=== PATIENT | male | born 1970 | race African-American/Black ===

== ENCOUNTER 2017-07-28 11:35 | Emergency (ER) | payer MEDICAID ==
[~2017-07-28] VITALS: Ht 175.3 cm; Wt 99.8 kg
[2017-07-28 13:20] LABS: Basophils # (auto) 0.1 uL; Basophils % (auto) 0.6 % (0.0-2.0); Eosinophils # (auto) 0 uL; Eosinophils % (auto) 0.1 % (0.0-7.0); Lymphocytes # (auto) 1.6 uL; Lymphocytes % (auto) 10.4 % (10.0-50.0); Monocytes # (auto) 0.4 uL; White Blood Cell 15.6 10^3/uL (4.4-10.8)
[2017-07-28 13:29] LABS: Hematocrit 46.4 % (41.0-53.0); Hemoglobin 16.3 g/dL (13.5-17.5); Mean Corpuscular Hemoglobin 29.9 pg (28.0-32.0); Mean Corpuscular Volume 85.3 fL (80.0-100.0); Monocytes % (auto) 2.6 % (0.0-12.0); Neutrophils # (auto) 13.4 uL; Neutrophils % (auto) 86.3 % (37.0-80.0); Nucleated Red Blood Cells % 0.3 %; Platelet Count (auto) 220 10^3/uL (140-450); Red Blood Cells 5.44 10^6/uL (4.5-5.90); Red Cell Distribution Width 12.1 % (11.8-14.3)
[2017-07-28] MEDS ORDERED: PROMETHAZINE HCL 25 MG/ML 1ML IV ONE ×2 (13:30→14:30)
[2017-07-28] MEDS ORDERED: NALBUPHINE HCL 10 MG/1ml INJECTION IV ONE (13:30)
[2017-07-28 13:44] LABS: Alanine Aminotransferase 30 U/L (16-61); Albumin 4.3 g/dL (3.4-5.0); Alkaline Phosphatase 127 U/L (45-117); Anion Gap 14 (5-15); Aspartate Aminotransferase 23 U/L (15-37); BUN/Creatinine Ratio 21.1; Bilirubin, Total 0.5 mg/dL (0.2-1.0); Blood Urea Nitrogen 16 mg/dL (7-18); Calcium 10.6 mg/dL (8.5-10.1); Carbon Dioxide 22 mmol/L (21-32); Chloride 100 mmol/L (98-107); GFR African American 141 mL/min; GFR Non-African American 116 mL/min; Glucose 361 mg/dL (74-106); Potassium 4.1 mmol/L (3.5-5.1); Sodium 136 mmol/L (136-145); Total Protein 8.6 g/dL (6.4-8.2)
[2017-07-28] MEDS ORDERED: MORPHINE SULFATE 4 MG/ML SYR/VIAL IV ONE ×2 (14:30→17:00)
[2017-07-28] MEDS ORDERED: SODIUM CHLORIDE 0.9% 1,000 ML IV ONE (16:15)
[2017-07-28 16:52] LABS: Urine Bacteria NONE SEEN /hpf (None Seen); Urine Blood 2+ /uL (Negative); Urine Specific Gravity 1.029 (1.001-1.035); Urine WBC 4 /hpf (0 - 3)
[2017-07-28] MEDS ORDERED: METOCLOPRAMIDE HCL 5MG/ml INJ 2ml VIAL IV ONE (17:00)
[2017-07-28 17:15] LABS: Alcohol, Urine < 3.0 mg/dL (0-5); Amphetamine Screen, Urine NEGATIVE (NEGATIVE); Barbiturate Scree,Urine NEGATIVE (NEGATIVE); Benzodiazephine Screen, Urine NEGATIVE (NEGATIVE); Cannabinoid Screen, Urine NEGATIVE (NEGATIVE); Cocaine Screen, Urine NEGATIVE (NEGATIVE); Opiate Scree,Urine POSITIVE (NEGATIVE); Phencyclidine Screen, Urine NEGATIVE (NEGATIVE)
[2017-07-28 18:09] VITALS: BP 161/92
== END 2017-07-28 18:47 | disposition home or self-care (01) ==
LOC: ER 11:35 → EDBD 11:35 → ER 18:47
DX: R10.11 Right upper quadrant pain (principal); G89.29 Other chronic pain; M54.9 Dorsalgia, unspecified; E11.65 Type 2 diabetes mellitus with hyperglycemia; I10 Essential (primary) hypertension; F17.210 Nicotine dependence, cigarettes, uncomplicated; E66.9 Obesity, unspecified; Z68.32 Body mass index [BMI] 32.0-32.9, adult
CPT/HCPCS: 36415; 71045; 74176; 80053; 80307; 81001; 84484; 85025; 93005; 96361; 96374; 96375; 96376; 99285; J2270; J2300; J2550; J2765; J7030

== ENCOUNTER 2019-06-29 03:51 | Emergency (ER) | payer MEDICAID ==
[~2019-06-29] VITALS: Ht 170.2 cm; Wt 95.3 kg
[~2019-06-29 03:51] MED LIST: LISI-646 PO; METF-370 PO
[2019-06-29] MEDS ORDERED: PROMETHAZINE HCL 25 MG/ML 1ML IV ONE (05:15)
[2019-06-29 05:28] LABS: Urine Bacteria NONE SEEN /hpf (None Seen); Urine Blood 1+ /uL (Negative); Urine Hyaline Cast MANY /lpf (0 - 2); Urine Mucus FEW (None Seen); Urine Specific Gravity 1.028 (1.001-1.035); Urine WBC 2 /hpf (0 - 3)
[2019-06-29 05:38] LABS: Alcohol, Urine < 3.0 mg/dL (0-5); Amphetamine Screen, Urine NEGATIVE (NEGATIVE); Barbiturate Scree,Urine NEGATIVE (NEGATIVE); Benzodiazephine Screen, Urine NEGATIVE (NEGATIVE); Cannabinoid Screen, Urine POSITIVE (NEGATIVE); Cocaine Screen, Urine NEGATIVE (NEGATIVE); Opiate Scree,Urine NEGATIVE (NEGATIVE); Phencyclidine Screen, Urine NEGATIVE (NEGATIVE)
[2019-06-29] MEDS ORDERED: IOHEXOL 300 MG/ML 100ML BOTTLE IJ ONE (06:37)
[2019-06-29] MEDS ORDERED: SODIUM CHLORIDE 0.9% 1,000 ML IV ONE (06:38)
[2019-06-29] MEDS ORDERED: SODIUM CHLORIDE 0.9% 500 ML IVB ONE (06:38)
[2019-06-29] MEDS ORDERED: METOCLOPRAMIDE HCL 5MG/ml INJ 2ml VIAL IV ONE (06:45)
[2019-06-29] MEDS ORDERED: HYDROmorphone HCL 2 MG/ML VL IV ONE (06:45)
[2019-06-29 07:31] LABS: Basophils # (auto) 0 10 ^3/uL (0-0.2); Basophils % (auto) 0.1 % (0.0-2.0); Eosinophils # (auto) 0 10 ^3/uL (0-0.8); Hematocrit 43.8 % (41.0-53.0); Hemoglobin 15.1 g/dL (13.5-17.5); Lymphocytes # (auto) 1.5 10 ^3/uL (0.4-5.4); Lymphocytes % (auto) 9.8 % (10.0-50.0); Mean Corpuscular Hemoglobin 28.4 pg (28.0-32.0); Mean Corpuscular Hgb Conc. 34.5 g/dL (32.0-36.0); Mean Corpuscular Volume 82.3 fL (80.0-100.0); Monocytes # (auto) 0.6 10 ^3/uL (0-1.3); Monocytes % (auto) 3.7 % (0.0-12.0); Neutrophils % (auto) 86.4 % (37.0-80.0); Nucleated Red Blood Cells % 0.2 %; Platelet Count (auto) 196 10^3/uL (140-450); Red Blood Cells 5.32 10^6/uL (4.5-5.90); Red Cell Distribution Width 12.8 % (11.8-14.3)
[2019-06-29 07:44] LABS: INR 1.01 (0.9-1.15); Partial Thromboplastin Time 23.2 sec (23.64-32.05)
[2019-06-29 07:58] LABS: Magnesium 1.6 mg/dL (1.6-2.6); Potassium 3.6 mmol/L (3.5-5.1)
[2019-06-29 08:05] LABS: Albumin 4.2 g/dL (3.4-5.0); Bilirubin, Total 0.4 mg/dL (0.2-1.0); Calcium 9.6 mg/dL (8.5-10.1)
[2019-06-29] MEDS ORDERED: PROCHLORPERAZINE EDISYLATE 5 MG/ML 2ML VIAL IV ONE (10:15)
[2019-06-29] MEDS ORDERED: MORPHINE SULF INJ 2 MG/ML SYRINGE 1ML IV ONE (10:15)
[2019-06-29 10:54] VITALS: BP 153/77
== END 2019-06-29 11:16 | disposition home or self-care (01) ==
LOC: ER 03:51
DX: E11.65 Type 2 diabetes mellitus with hyperglycemia (principal); R10.84 Generalized abdominal pain; K31.84 Gastroparesis; K80.20 Calculus of gallbladder without cholecystitis without obstruction; F17.210 Nicotine dependence, cigarettes, uncomplicated; I10 Essential (primary) hypertension
CPT/HCPCS: 36415; 71046; 74177; 80053; 80307; 81001; 82150; 83690; 83735; 84443; 84484; 85025; 85610; 85730; 93005; 96361; 96374; 96375; 99285; J0780; J1170; J2270; J2550; J2765; J7030; Q9967

== ENCOUNTER → 2019-07-02 | Emergency (ER) | payer MEDICAID ==
[~2019-07-02] VITALS: Ht 180.3 cm; Wt 95.3 kg
[~2019-07-02] MED LIST changes: +ERYTHROMYCIN 250 MG TAB PO ONE; +HYDROmorphone HCL 2 MG/ML VL IV ONE; +KETOROLAC TROMETH 15 mg/ml 1ML VL IV ONE; +KETOROLAC TROMETH 30 MG/ML 1ML VIAL ONE; +METOCLOPRAMIDE HCL 5MG/ml INJ 2ml VIAL IV ONE; +MORPHINE SULF INJ 2 MG/ML SYRINGE 1ML IV ONE; +PROMETHAZINE HCL 25 MG/ML 1ML IV ONE; +SODIUM CHLORIDE 0.9% 1,000 ML IVB ONE
[2019-07-02 08:06] LABS: Basophils # (auto) 0.1 10 ^3/uL (0-0.2); Basophils % (auto) 0.6 % (0.0-2.0); Eosinophils # (auto) 0 10 ^3/uL (0-0.8); Eosinophils % (auto) 0.4 % (0.0-7.0); Hematocrit 42.4 % (41.0-53.0); Hemoglobin 14.8 g/dL (13.5-17.5); Lymphocytes # (auto) 1.6 10 ^3/uL (0.4-5.4); Lymphocytes % (auto) 15.6 % (10.0-50.0); Mean Corpuscular Hemoglobin 28.7 pg (28.0-32.0); Mean Corpuscular Hgb Conc. 34.8 g/dL (32.0-36.0); Mean Corpuscular Volume 82.4 fL (80.0-100.0); Monocytes # (auto) 0.6 10 ^3/uL (0-1.3); Monocytes % (auto) 5.4 % (0.0-12.0); Neutrophils # (auto) 8.2 10 ^3/uL (1.6-8.6); Nucleated Red Blood Cells % 0.1 %; Platelet Count (auto) 185 10^3/uL (140-450); Red Blood Cells 5.15 10^6/uL (4.5-5.90); Red Cell Distribution Width 12.9 % (11.8-14.3); White Blood Cell 10.5 10^3/uL (4.4-10.8)
[2019-07-02 08:22] LABS: Magnesium 2.2 mg/dL (1.6-2.6)
[2019-07-02 08:24] LABS: Calcium 9.2 mg/dL (8.5-10.1); Potassium 3.7 mmol/L (3.5-5.1)
[2019-07-02 08:27] LABS: BUN/Creatinine Ratio 23.6; Bilirubin, Total 0.7 mg/dL (0.2-1.0)
[2019-07-02 09:54] LABS: Urine WBC None Seen /hpf (0 - 3)
[2019-07-02 10:01] LABS: Urine Bacteria NONE SEEN /hpf (None Seen); Urine Blood 1+ /uL (Negative); Urine Hyaline Cast FEW /lpf (0 - 2); Urine Mucus FEW (None Seen); Urine Specific Gravity 1.011 (1.001-1.035)
[2019-07-02 13:45] VITALS: BP 156/92
[2019-07-02 14:06] LABS: Amphetamine Screen, Urine NEGATIVE (NEGATIVE); Barbiturate Scree,Urine NEGATIVE (NEGATIVE); Benzodiazephine Screen, Urine NEGATIVE (NEGATIVE); Cannabinoid Screen, Urine POSITIVE (NEGATIVE); Cocaine Screen, Urine NEGATIVE (NEGATIVE); Opiate Scree,Urine POSITIVE (NEGATIVE); Phencyclidine Screen, Urine NEGATIVE (NEGATIVE)
[2019-07-02] MEDS: PANTOPRAZOLE 40 MG TAB PO ONE ×2 (14:32→14:49)
[2019-07-02] MEDS: PREGABALIN CAPSULE 75 MG CAP PO ONE ×2 (14:32→14:49)
== END | disposition left against medical advice (07) ==
LOC: ER 07:07
DX: K29.00 Acute gastritis without bleeding (principal); E11.43 Type 2 diabetes mellitus with diabetic autonomic (poly)neuropathy; K31.84 Gastroparesis; R11.2 Nausea with vomiting, unspecified; F17.210 Nicotine dependence, cigarettes, uncomplicated; E11.9 Type 2 diabetes mellitus without complications; I10 Essential (primary) hypertension
CPT/HCPCS: 36415; 78226; 80053; 80307; 81001; 83690; 83735; 85025; 96361; 96374; 96375; 99284; A9537; J1170; J1885; J2270; J2550; J2765; J7030

== ENCOUNTER 2019-07-07 09:09 | Emergency (ER) | payer MEDICAID ==
[~2019-07-07] VITALS: Ht 180.3 cm; Wt 97.5 kg
[~2019-07-07 09:09] MED LIST changes: -ERYTHROMYCIN 250 MG TAB PO ONE; -HYDROmorphone HCL 2 MG/ML VL IV ONE; -KETOROLAC TROMETH 15 mg/ml 1ML VL IV ONE; -KETOROLAC TROMETH 30 MG/ML 1ML VIAL ONE; -METOCLOPRAMIDE HCL 5MG/ml INJ 2ml VIAL IV ONE; -MORPHINE SULF INJ 2 MG/ML SYRINGE 1ML IV ONE; -PROMETHAZINE HCL 25 MG/ML 1ML IV ONE; -SODIUM CHLORIDE 0.9% 1,000 ML IVB ONE
[2019-07-07] MEDS ORDERED: SODIUM CHLORIDE 0.9% 1,000 ML IVB ONE (09:32)
[2019-07-07] MEDS ORDERED: SODIUM CHLORIDE 0.9% 1,000 ML IV ONE (09:32)
[2019-07-07] MEDS ORDERED: KETOROLAC TROMETH 30 MG/ML 1ML VIAL ONE (09:41)
[2019-07-07] MEDS ORDERED: METOCLOPRAMIDE HCL 5MG/ml INJ 2ml VIAL IV ONE (09:45)
[2019-07-07] MEDS ORDERED: KETOROLAC TROMETH 15 mg/ml 1ML VL IV ONE (09:45)
[2019-07-07] MEDS ORDERED: MORPHINE SULFATE 4 MG/ML SYR/VIAL IV ONE (09:45)
[2019-07-07 09:46] LABS: Basophils # (auto) 0.1 10 ^3/uL (0-0.2); Eosinophils # (auto) 0 10 ^3/uL (0-0.8); Eosinophils % (auto) 0.1 % (0.0-7.0); Hematocrit 42.9 % (41.0-53.0); Hemoglobin 15.4 g/dL (13.5-17.5); Lymphocytes # (auto) 2.1 10 ^3/uL (0.4-5.4); Lymphocytes % (auto) 22.9 % (10.0-50.0); Mean Corpuscular Hemoglobin 29.3 pg (28.0-32.0); Mean Corpuscular Hgb Conc. 35.8 g/dL (32.0-36.0); Mean Corpuscular Volume 81.7 fL (80.0-100.0); Monocytes # (auto) 0.5 10 ^3/uL (0-1.3); Monocytes % (auto) 5.4 % (0.0-12.0); Neutrophils # (auto) 6.5 10 ^3/uL (1.6-8.6); Neutrophils % (auto) 70.6 % (37.0-80.0); Nucleated Red Blood Cells % 0.2 %; Platelet Count (auto) 232 10^3/uL (140-450); Red Blood Cells 5.25 10^6/uL (4.5-5.90); Red Cell Distribution Width 12.3 % (11.8-14.3); White Blood Cell 9.2 10^3/uL (4.4-10.8)
[2019-07-07 10:08] LABS: Albumin 4.4 g/dL (3.4-5.0); BUN/Creatinine Ratio 17.9; Potassium 3.8 mmol/L (3.5-5.1)
[2019-07-07 10:11] LABS: Bilirubin, Total 0.7 mg/dL (0.2-1.0); Total Protein 8.4 g/dL (6.4-8.2)
[2019-07-07 11:00] VITALS: BP 126/79
== END 2019-07-07 12:01 | disposition home or self-care (01) ==
LOC: ER 09:09
DX: E11.65 Type 2 diabetes mellitus with hyperglycemia (principal); R10.9 Unspecified abdominal pain; I10 Essential (primary) hypertension
CPT/HCPCS: 36415; 80053; 83690; 85025; 96361; 96374; 96375; 99284; J1885; J2270; J2765; J7030

== ENCOUNTER 2019-07-12 15:20 | Inpatient (IN) | payer MEDICAID ==
[~2019-07-12] VITALS: Ht 175.3 cm; Wt 96.6 kg
[2019-07-12] MEDS ORDERED: PROMETHAZINE HCL 25 MG/ML 1ML IV ONE (16:00)
[2019-07-12] MEDS ORDERED: MORPHINE SULF INJ 2 MG/ML SYRINGE 1ML IV ONE (16:00)
[2019-07-12] MEDS ORDERED: ASPirin 81 mg TAB PO ONE (16:00)
[2019-07-12 16:09] LABS: Basophils # (auto) 0 10 ^3/uL (0-0.2); Basophils % (auto) 0.5 % (0.0-2.0); Eosinophils # (auto) 0 10 ^3/uL (0-0.8); Eosinophils % (auto) 0.2 % (0.0-7.0); Hematocrit 40.6 % (41.0-53.0); Lymphocytes # (auto) 1.4 10 ^3/uL (0.4-5.4); Lymphocytes % (auto) 14.9 % (10.0-50.0); Mean Corpuscular Hemoglobin 28.7 pg (28.0-32.0); Mean Corpuscular Hgb Conc. 34.6 g/dL (32.0-36.0); Monocytes # (auto) 0.4 10 ^3/uL (0-1.3); Monocytes % (auto) 4.3 % (0.0-12.0); Neutrophils # (auto) 7.6 10 ^3/uL (1.6-8.6); Neutrophils % (auto) 80.1 % (37.0-80.0); Nucleated Red Blood Cells % 0.1 %; Platelet Count (auto) 199 10^3/uL (140-450); Red Blood Cells 4.89 10^6/uL (4.5-5.90); Red Cell Distribution Width 12.9 % (11.8-14.3); White Blood Cell 9.4 10^3/uL (4.4-10.8)
[2019-07-12 16:24] LABS: INR 0.99 (0.9-1.15); Partial Thromboplastin Time 23.6 sec (23.64-32.05)
[2019-07-12 16:25] LABS: Alanine Aminotransferase 26 U/L (16-61); Albumin 3.8 g/dL (3.4-5.0); Anion Gap 10 (5-15); Aspartate Aminotransferase 17 U/L (15-37); Blood Urea Nitrogen 16 mg/dL (7-18); Calcium 9.6 mg/dL (8.5-10.1); Carbon Dioxide 25 mmol/L (21-32); Chloride 102 mmol/L (98-107); GFR African American 116 mL/min; GFR Non-African American 96 mL/min; Glucose 158 mg/dL (74-106); Magnesium 1.8 mg/dL (1.6-2.6); Potassium 4.1 mmol/L (3.5-5.1); Sodium 137 mmol/L (136-145)
[2019-07-12 16:30] LABS: Alkaline Phosphatase 61 U/L (45-117); Bilirubin, Total 0.5 mg/dL (0.2-1.0); Total Protein 7.6 g/dL (6.4-8.2)
[2019-07-12] MEDS ORDERED: LABETALOL HCL 5 MG/ML 4ML SYRINGE IV ONE ×2 (18:15→20:30)
[2019-07-12] MEDS ORDERED: PROMETHAZINE HCL 25 MG/ML 1ML IV PRN (18:45)
[2019-07-12] MEDS ORDERED: traMADol HCL 50 MG TAB PO PRN (18:45)
[2019-07-12] MEDS ORDERED: KETOROLAC TROMETH 30 MG/ML 1ML VIAL IV ONE (18:45)
[2019-07-12] MEDS ORDERED: LACTULOSE 20Gm/30ML SOLN PO PRN (18:45)
[2019-07-12] MEDS ORDERED: NITROGLYCERIN 0.4 MG SL TAB SL PRN (18:45)
[2019-07-12] MEDS ORDERED: ACETAMINOPHEN 500 MG TAB PO PRN (18:45)
[2019-07-12] MEDS ORDERED: FAMOTIDINE 20 MG TAB PO ONE (18:45)
[2019-07-12] MEDS: CARVEDILOL 3.125 MG TAB PO SCH ×2 (18:45→22:13)
[2019-07-12] MEDS ORDERED: LISINOPRIL 20 MG TAB PO ONE (18:45)
[2019-07-12] MEDS ORDERED: MORPHINE SULF INJ 2 MG/ML SYRINGE 1ML IV PRN (18:45)
[2019-07-12] MEDS ORDERED: TEMAZEPAM 15 MG CAP PO PRN (18:45)
[2019-07-12] MEDS ORDERED: ALUM & MAG HYDROX-SIMETH LIQ(MAALOX) 30 ML PO ONE (18:45)
[2019-07-12] MEDS ORDERED: amLODIPine BESYLATE 5 MG TAB PO ONE (18:45)
[2019-07-12] MEDS ORDERED: DEXTROSE (50%) 50ML SYRG IV PRN (18:45)
[2019-07-12] MEDS ORDERED: LABETALOL HCL 5 MG/ML 4ML SYRINGE IV PRN (20:30)
[2019-07-12 21:30] VITALS: BP 148/79
[2019-07-12 22:00] VITALS: BP 148/79
[2019-07-12] MEDS: InsuLIN REG 1unit/0.01ml Soln (100units/ml) SC SCH (22:00)
[2019-07-12] MEDS ORDERED: ATORVASTATIN 20 MG TAB PO SCH (22:00)
--- NOTE | 2019-07-12 22:00 | NUR ---
Telemetry admit from ER ARTUROEZIO admitted to Telemetry unit. Patient oriented to finn VANESSA RN, unit, room, bed, and unit policies regarding patient care and visiting hours. Patient now on continuous telemetry monitoring, tele box #49 and telemetry reading on arrival to unit is NSR at 82. Patient weighed by bed scale and encouraged to call if they need something. All questions and concerns addressed, patient verbalized understanding. Note: Skin assessment: Back with lesions different sizes and scattered on back, wound consult placed.
[2019-07-12] MEDS: FAMOTIDINE 20 MG TAB PO SCH (22:14)
[2019-07-12] MEDS: ACCU-CHEK COMFORT CURVE STRIP VI SCH (22:15)
[2019-07-12] MEDS ORDERED: METF-916 PO (22:56)
[2019-07-13 05:00] VITALS: BP 138/80
[2019-07-13] MEDS: ACCU-CHEK COMFORT CURVE STRIP VI SCH ×2 (05:28→12:06)
--- NOTE | 2019-07-13 06:24 | NUR ---
Unable to collect urine specimen, patient ambulated to restroom and did not call prior to getting out of bed despite frequent reminders.
[2019-07-13] MEDS: InsuLIN REG 1unit/0.01ml Soln (100units/ml) SC SCH ×2 (06:52→11:30)
--- NOTE | 2019-07-13 07:30 | NUR ---
Opening Shift Note Assumed care of patient, awake and alert, rocking back and forth while seated on side of bed. No S/S of distress/SOB or pain. Instructed on POC and to call for assist PRN, will continue to monitor for changes Q1hr and PRN. Re-educated on need for urine sample, patient verbalizes understanding. Bed in low and locked position, rails up x2, no-slip socks on.
[2019-07-13 09:00] VITALS: BP 118/73
--- NOTE | 2019-07-13 09:07 | NUR ---
URINE SPECIMEN COLLECTED
[2019-07-13] MEDS: CARVEDILOL 3.125 MG TAB PO SCH (09:21)
[2019-07-13] MEDS: FAMOTIDINE 20 MG TAB PO SCH (09:21)
--- NOTE | 2019-07-13 09:23 | NUR ---
WOUND CARE NURSE AT BEDSIDE
[2019-07-13 09:24] LABS: Urine Bacteria NONE SEEN /hpf (None Seen); Urine Blood Negative /uL (Negative); Urine Hyaline Cast FEW /lpf (0 - 2); Urine Mucus FEW (None Seen); Urine Specific Gravity 1.026 (1.001-1.035); Urine WBC 2 /hpf (0 - 3)
--- NOTE | 2019-07-13 09:40 | NUR ---
WOUND CARE NOTE: Wound care in to see patient per wound care request regarding "scattered wound on back" that are noted present on admission. Bedside nurse took photograph of patient's wounds upon admission for reference. Patient is 49 years old male with admitting diagnosis of Chest Pain, Hypertensive Urgency. Patient with history of DM and Htn. Patient is resting in bed in Rm. 298B. Patient is awake,alert and oriented. He's ambulatory and self turning and reposition. His Abhi score is 19. Skin assessment done with the assistance of patient's nurse, DANIEL Plata. Patient noted with multiple open and scabbed lesions to upper and lower back. Wounds has some brown scabs and yellow slough, loy wound is pink, no drainage/odor noted. Patient reported that he gets "pimple like lesions" to his back and he cleans it by showering with warm water. Cleansed wounds with NS,patted dry with gauze,applied Thera honey gel, covered with non-adherent dressing (Telfa), secured with Medipore tape. Patient tolerated well. Wound care education provided, patient verbalized understanding. All wound stats documented in [facility] wound assessment part. DANIEL Plata at bedside. RECOMMENDATION: Nursing to continue with Daily/PRN dressing change to multiple back lesion per MD order, Dietary consult for wounds, continue monitoring by wound care while patient is hospitalized. Addendum: 07/13/19 at 1224 by Nellie Diaz RN Amended: Links added.
[2019-07-13 09:49] LABS: Alcohol, Urine < 3.0 mg/dL (0-5); Amphetamine Screen, Urine NEGATIVE (NEGATIVE); Barbiturate Scree,Urine NEGATIVE (NEGATIVE); Benzodiazephine Screen, Urine NEGATIVE (NEGATIVE); Cannabinoid Screen, Urine POSITIVE (NEGATIVE); Cocaine Screen, Urine NEGATIVE (NEGATIVE); Opiate Scree,Urine POSITIVE (NEGATIVE); Phencyclidine Screen, Urine NEGATIVE (NEGATIVE)
[2019-07-13] MEDS ORDERED: LISINOPRIL 20 MG TAB PO SCH (10:00)
[2019-07-13] MEDS ORDERED: amLODIPine BESYLATE 5 MG TAB PO SCH (10:00)
[2019-07-13] MEDS ORDERED: NITROGLYCERIN 0.2MG/HR TOPICAL PATCH TD SCH (10:00)
--- NOTE | 2019-07-13 12:30 | NUR ---
DR STRONG AT BEDSIDE NO NEW ORDERS, FOLLOW UP OUTPATIENT FOR STRESS TEST.
[2019-07-13 13:00] VITALS: BP 120/75
--- NOTE | 2019-07-13 15:15 | NUR ---
DR DAVID AT BEDSIDE ORDER FOR DISCHARGE, WILL WRITE PRESCRIPTIONS
[2019-07-13 15:32] VITALS: BP 120/75
--- NOTE | 2019-07-13 15:50 | NUR ---
DISCHARGE Discharge instructions given as ordered. Encourage to follow up with PMD as instructed. All questions and concerns addressed. Patient verbalized understanding. Medication reconciliation form completed and copy given to patient. IV removed with catheter intact, pressure dressing applied. Telemetry unit returned to ICU. Patient taken to vehicle with all personal belongings, accompanied by staff. No distress noted at time of departure.
== END 2019-07-13 15:50 | disposition home or self-care (01) | DRG 203 ==
LOC: EDBD 15:20 → ER 15:20 → TELE 15:21 → TELE-WESTW 21:29
PROVIDERS: ADMIT Internal Medicine; ATTEND Internal Medicine
DX: R07.89 Other chest pain (principal); E11.21 Type 2 diabetes mellitus with diabetic nephropathy; K31.84 Gastroparesis; E11.43 Type 2 diabetes mellitus with diabetic autonomic (poly)neuropathy; E66.9 Obesity, unspecified; I16.0 Hypertensive urgency; Z79.84 Long term (current) use of oral hypoglycemic drugs; I10 Essential (primary) hypertension; F41.9 Anxiety disorder, unspecified; F12.90 Cannabis use, unspecified, uncomplicated; G89.4 Chronic pain syndrome; Z79.899 Other long term (current) drug therapy; Z82.49 Family history of ischemic heart disease and other diseases of the circulatory system; Z83.3 Family history of diabetes mellitus
CPT/HCPCS: 36415; 71045; 80053; 80307; 81001; 82550; 82962; 83036; 83735; 83880; 84443; 84484; 85025; 85379; 85610; 85652; 85730; 86141; 93005; 93306; G0378; J1815; J1885; J3490

== ENCOUNTER 2019-07-15 13:03 | Emergency (ER) | payer MEDICAID ==
[~2019-07-15] VITALS: Ht 177.8 cm; Wt 96.2 kg
[~2019-07-15 13:03] MED LIST changes: -METF-370 PO; +METF-916 PO
[2019-07-15] MEDS ORDERED: PANTOPRAZOLE 40 MG/10 ML VIAL INJ IV STA (13:16)
[2019-07-15] MEDS ORDERED: SODIUM CHLORIDE 0.9% 1,000 ML IVB ONE (13:16)
[2019-07-15] MEDS ORDERED: PROCHLORPERAZINE EDISYLATE 5 MG/ML 2ML VIAL IV ONE (13:30)
[2019-07-15] MEDS ORDERED: MORPHINE SULFATE 4 MG/ML SYR/VIAL IV ONE (13:30)
[2019-07-15 13:57] LABS: Calcium 9.8 mg/dL (8.5-10.1); Potassium 4.8 mmol/L (3.5-5.1)
[2019-07-15 14:01] LABS: BUN/Creatinine Ratio 23.7; Bilirubin, Total 0.6 mg/dL (0.2-1.0); Total Protein 7.7 g/dL (6.4-8.2)
[2019-07-15 14:05] LABS: Basophils # (auto) 0 10 ^3/uL (0-0.2); Basophils % (auto) 0.5 % (0.0-2.0); Eosinophils # (auto) 0 10 ^3/uL (0-0.8); Eosinophils % (auto) 0.3 % (0.0-7.0); Hematocrit 40.9 % (41.0-53.0); Hemoglobin 13.9 g/dL (13.5-17.5); Lymphocytes # (auto) 1.5 10 ^3/uL (0.4-5.4); Lymphocytes % (auto) 17.4 % (10.0-50.0); Mean Corpuscular Hemoglobin 28.3 pg (28.0-32.0); Mean Corpuscular Hgb Conc. 34.1 g/dL (32.0-36.0); Mean Corpuscular Volume 82.9 fL (80.0-100.0); Monocytes # (auto) 0.5 10 ^3/uL (0-1.3); Monocytes % (auto) 5.6 % (0.0-12.0); Neutrophils # (auto) 6.6 10 ^3/uL (1.6-8.6); Neutrophils % (auto) 76.2 % (37.0-80.0); Nucleated Red Blood Cells % 0.1 %; Platelet Count (auto) 213 10^3/uL (140-450); Red Blood Cells 4.94 10^6/uL (4.5-5.90); Red Cell Distribution Width 12.8 % (11.8-14.3); White Blood Cell 8.6 10^3/uL (4.4-10.8)
[2019-07-15 14:40] LABS: Urine WBC None Seen /hpf (0 - 3)
[2019-07-15 14:50] LABS: Urine Bacteria NONE SEEN /hpf (None Seen); Urine Blood 1+ /uL (Negative); Urine Specific Gravity 1.018 (1.001-1.035)
[2019-07-15 15:13] VITALS: BP 135/78
== END 2019-07-15 15:12 | disposition home or self-care (01) ==
LOC: ER 13:03
DX: E11.40 Type 2 diabetes mellitus with diabetic neuropathy, unspecified (principal); R11.2 Nausea with vomiting, unspecified; R10.84 Generalized abdominal pain; F12.10 Cannabis abuse, uncomplicated; I10 Essential (primary) hypertension; Z79.899 Other long term (current) drug therapy
CPT/HCPCS: 36415; 80053; 81001; 83690; 85025; 96361; 96374; 96375; 99284; C9113; J0780; J2270; J7030

== ENCOUNTER 2019-07-15 21:26 | Emergency (ER) | payer MEDICAID ==
[~2019-07-15] VITALS: Ht 180.3 cm; Wt 95.3 kg
[2019-07-15] MEDS ORDERED: LORazepam 2MG/ML-1ML VIAL ONE (21:30)
[2019-07-15] MEDS ORDERED: diphenhdrAMINE HCL 50 MG/1 ML VL ONE (21:30)
[2019-07-15] MEDS ORDERED: LORazepam 2MG/ML-1ML VIAL IM ONE (21:45)
[2019-07-15] MEDS ORDERED: diphenhdrAMINE HCL 50 MG/1 ML VL IM ONE (21:45)
[2019-07-16 00:24] VITALS: BP 166/89
== END 2019-07-16 00:37 | disposition home or self-care (01) ==
LOC: ER 21:33
DX: F41.0 Panic disorder [episodic paroxysmal anxiety] (principal); I10 Essential (primary) hypertension; E11.9 Type 2 diabetes mellitus without complications
CPT/HCPCS: 96372; 99284; J1200; J2060

== ENCOUNTER → 2019-12-06 | Emergency (ER) | payer MEDICAID ==
[~2019-12-06] VITALS: Ht 172.7 cm; Wt 99.8 kg
[~2019-12-06] MED LIST changes: +HYDROmorphone HCL 2 MG/ML VL IV ONE; +METOCLOPRAMIDE HCL 5MG/ml INJ 2ml VIAL IV ONE; +ONDANSETRON HCL 4 MG/2 ML VIAL IV ONE; +SODIUM CHLORIDE 0.9% 1,000 ML IV ONE
[2019-12-06 14:30] LABS: Basophils # (auto) 0 10 ^3/uL (0-0.2); Basophils % (auto) 0.2 % (0.0-2.0); Eosinophils # (auto) 0 10 ^3/uL (0-0.8); Eosinophils % (auto) 0.1 % (0.0-7.0); Hematocrit 45.8 % (41.0-53.0); Hemoglobin 15.3 g/dL (13.5-17.5); Lymphocytes # (auto) 1.5 10 ^3/uL (0.4-5.4); Lymphocytes % (auto) 11.6 % (10.0-50.0); Mean Corpuscular Hemoglobin 28.8 pg (28.0-32.0); Mean Corpuscular Hgb Conc. 33.4 g/dL (32.0-36.0); Mean Corpuscular Volume 86.2 fL (80.0-100.0); Monocytes # (auto) 0.4 10 ^3/uL (0-1.3); Monocytes % (auto) 2.9 % (0.0-12.0); Neutrophils # (auto) 10.9 10 ^3/uL (1.6-8.6); Neutrophils % (auto) 85.2 % (37.0-80.0); Platelet Count (auto) 218 10^3/uL (140-450); Red Blood Cells 5.31 10^6/uL (4.5-5.90); Red Cell Distribution Width 13.1 % (11.8-14.3); White Blood Cell 12.8 10^3/uL (4.4-10.8)
[2019-12-06 14:48] LABS: Albumin 4.4 g/dL (3.4-5.0); Calcium 9.6 mg/dL (8.5-10.1)
[2019-12-06 14:52] LABS: BUN/Creatinine Ratio 21.2; Bilirubin, Total 0.4 mg/dL (0.2-1.0); Total Protein 8.7 g/dL (6.4-8.2)
[2019-12-06 17:22] LABS: Urine WBC None Seen /hpf (0 - 3)
[2019-12-06 17:39] LABS: Urine Bacteria NONE SEEN /hpf (None Seen); Urine Blood 2+ /uL (Negative)
[2019-12-06 17:43] LABS: Amphetamine Screen, Urine NEGATIVE (NEGATIVE); Barbiturate Scree,Urine NEGATIVE (NEGATIVE); Benzodiazephine Screen, Urine NEGATIVE (NEGATIVE); Cannabinoid Screen, Urine POSITIVE (NEGATIVE); Cocaine Screen, Urine NEGATIVE (NEGATIVE); Opiate Scree,Urine POSITIVE (NEGATIVE); Phencyclidine Screen, Urine NEGATIVE (NEGATIVE)
[2019-12-06 18:22] VITALS: BP 161/79
== END | disposition home or self-care (01) ==
LOC: EDUNIT# 13:37 → EDBD 13:50 → ER 13:50
DX: K31.84 Gastroparesis (principal); K52.9 Noninfective gastroenteritis and colitis, unspecified; I10 Essential (primary) hypertension; E11.9 Type 2 diabetes mellitus without complications; M25.562 Pain in left knee
CPT/HCPCS: 36415; 73562; 74176; 80053; 80307; 81001; 85025; 96361; 96374; 96375; 99285; J1170; J2405; J2765; J7030

== ENCOUNTER 2020-07-03 07:07 | Emergency (ER) | payer MEDICAID ==
[~2020-07-03] VITALS: Ht 182.9 cm; Wt 99.8 kg
[~2020-07-03 07:07] MED LIST changes: -HYDROmorphone HCL 2 MG/ML VL IV ONE; -LISI-646 PO; +LISI20TA28 PO; -METOCLOPRAMIDE HCL 5MG/ml INJ 2ml VIAL IV ONE; -ONDANSETRON HCL 4 MG/2 ML VIAL IV ONE; -SODIUM CHLORIDE 0.9% 1,000 ML IV ONE
[2020-07-03] MEDS ORDERED: SODIUM CHLORIDE 0.9% 1,000 ML IVB ONE (07:30)
[2020-07-03] MEDS ORDERED: KETOROLAC TROMETH 30 MG/ML 1ML VIAL IV ONE (07:30)
[2020-07-03] MEDS ORDERED: SODIUM CHLORIDE 0.9% 1,000 ML IV ONE (07:30)
[2020-07-03] MEDS ORDERED: MORPHINE SULFATE 4 MG/ML SYR/VIAL IV ONE (07:30)
[2020-07-03] MEDS ORDERED: PROCHLORPERAZINE EDISYLATE 5 MG/ML 2ML VIAL IV ONE (07:30)
[2020-07-03] MEDS ORDERED: LORazepam 2MG/ML-1ML VIAL IV ONE (08:00)
[2020-07-03 08:54] LABS: Basophils # (auto) 0 10 ^3/uL (0-0.2); Basophils % (auto) 0.3 % (0.0-2.0); Eosinophils # (auto) 0.1 10 ^3/uL (0-0.8); Eosinophils % (auto) 1.2 % (0.0-7.0); Hematocrit 40.1 % (41.0-53.0); Hemoglobin 13.7 g/dL (13.5-17.5); Lymphocytes # (auto) 1.8 10 ^3/uL (0.4-5.4); Lymphocytes % (auto) 22.3 % (10.0-50.0); Mean Corpuscular Hgb Conc. 34.3 g/dL (32.0-36.0); Mean Corpuscular Volume 87.4 fL (80.0-100.0); Monocytes # (auto) 0.4 10 ^3/uL (0-1.3); Monocytes % (auto) 4.9 % (0.0-12.0); Neutrophils # (auto) 5.9 10 ^3/uL (1.6-8.6); Neutrophils % (auto) 71.3 % (37.0-80.0); Nucleated Red Blood Cells % 0.1 %; Red Blood Cells 4.59 10^6/uL (4.5-5.90); Red Cell Distribution Width 13.1 % (11.8-14.3); White Blood Cell 8.3 10^3/uL (4.4-10.8)
[2020-07-03 09:17] LABS: Albumin 4.2 g/dL (3.4-5.0); Anion Gap 9 (5-15); Blood Urea Nitrogen 18 mg/dL (7-18); Calcium 9.3 mg/dL (8.5-10.1); Carbon Dioxide 21 mmol/L (21-32); Chloride 114 mmol/L (98-107); Glucose 178 mg/dL (74-106); Lipase 111 U/L (73-393); Sodium 144 mmol/L (136-145)
[2020-07-03 09:22] LABS: Alanine Aminotransferase 19 U/L (16-61); Alkaline Phosphatase 70 U/L (45-117); Aspartate Aminotransferase 13 U/L (15-37); BUN/Creatinine Ratio 18.9; Bilirubin, Total 0.5 mg/dL (0.2-1.0); GFR African American 107 mL/min; GFR Non-African American 89 mL/min; Total Protein 7.7 g/dL (6.4-8.2)
[2020-07-03 09:32] VITALS: BP 166/97
[2020-07-03 10:09] LABS: Urine Bacteria NONE SEEN /hpf (None Seen); Urine Blood 2+ /uL (Negative); Urine Hyaline Cast FEW /lpf (0 - 2); Urine Specific Gravity 1.013 (1.001-1.035); Urine WBC 1 /hpf (0 - 3)
[2020-07-03 10:43] LABS: Alcohol, Urine < 3.0 mg/dL (0-10); Amphetamine Screen, Urine NEGATIVE (NEGATIVE); Benzodiazephine Screen, Urine NEGATIVE (NEGATIVE); Cannabinoid Screen, Urine POSITIVE (NEGATIVE); Cocaine Screen, Urine NEGATIVE (NEGATIVE); Phencyclidine Screen, Urine NEGATIVE (NEGATIVE)
[2020-07-03 10:50] LABS: Barbiturate Scree,Urine NEGATIVE (NEGATIVE); Opiate Scree,Urine NEGATIVE (NEGATIVE)
== END 2020-07-03 10:54 | disposition home or self-care (01) ==
LOC: EDBD 07:07 → ER 07:07
DX: R10.84 Generalized abdominal pain (principal); F12.10 Cannabis abuse, uncomplicated; E11.9 Type 2 diabetes mellitus without complications; I10 Essential (primary) hypertension; Z88.6 Allergy status to analgesic agent
CPT/HCPCS: 36415; 74176; 80053; 80307; 81001; 83690; 84484; 85025; 96361; 96374; 96375; 99284; J0780; J1885; J2060; J7030

== ENCOUNTER 2020-12-26 23:25 | Inpatient (IN) | payer MEDICAID ==
[~2020-12-26] VITALS: Ht 177.8 cm; Wt 78.0 kg
[2020-12-27 01:02] LABS: Basophils # (auto) 0 10 ^3/uL (0-0.2); Basophils % (auto) 0.1 % (0.0-2.0); Eosinophils # (auto) 0 10 ^3/uL (0-0.8); Hematocrit 43.6 % (41.0-53.0); Hemoglobin 14.9 g/dL (13.5-17.5); Lymphocytes # (auto) 0.9 10 ^3/uL (0.4-5.4); Mean Corpuscular Hemoglobin 30.7 pg (28.0-32.0); Mean Corpuscular Hgb Conc. 34.2 g/dL (32.0-36.0); Mean Corpuscular Volume 89.7 fL (80.0-100.0); Monocytes # (auto) 0.4 10 ^3/uL (0-1.3); Neutrophils # (auto) 11.9 10 ^3/uL (1.6-8.6); Neutrophils % (auto) 89.9 % (37.0-80.0); Nucleated Red Blood Cells % 0.1 %; Red Blood Cells 4.87 10^6/uL (4.5-5.90); Red Cell Distribution Width 12.8 % (11.8-14.3); White Blood Cell 13.2 10^3/uL (4.4-10.8)
[2020-12-27 01:25] LABS: Albumin 4.5 g/dL (3.4-5.0); BUN/Creatinine Ratio 24.7; Calcium 9.8 mg/dL (8.5-10.1); Potassium 4.1 mmol/L (3.5-5.1)
[2020-12-27] MEDS ORDERED: KETOROLAC TROMETH 30 MG/ML 1ML VIAL IV ONE (01:30)
[2020-12-27] MEDS ORDERED: PROMETHAZINE HCL 25 MG/ML 1ML IV ONE (01:30)
[2020-12-27] MEDS ORDERED: LORazepam 2MG/ML-1ML VIAL IV ONE ×2 (01:30→03:45)
[2020-12-27] MEDS ORDERED: diphenhdrAMINE HCL 50 MG/1 ML VL IV ONE ×2 (01:30→09:30)
[2020-12-27] MEDS ORDERED: FAMOTIDINE (10MG/ML) 2ML VL IV ONE (01:30)
[2020-12-27] MEDS ORDERED: SODIUM CHLORIDE 0.9% 1,000 ML IV ONE (01:30)
[2020-12-27 01:42] LABS: Bilirubin, Total 0.6 mg/dL (0.2-1.0); Total Protein 8.1 g/dL (6.4-8.2)
[2020-12-27] MEDS ORDERED: hydrALAZINE HCL 20 MG/ML VL IV ONE (02:30)
[2020-12-27] MEDS ORDERED: IOHEXOL 300 MG/ML 100ML BOTTLE IJ ONE (03:57)
[2020-12-27] MEDS ORDERED: fentaNYL CITRATE 100 MCG/2 ML VL IV ONE (04:00)
[2020-12-27] MEDS ORDERED: LABETALOL HCL 5 MG/ML 4ML SYRINGE IV ONE (04:00)
[2020-12-27 04:08] LABS: Urine Bacteria NONE SEEN /hpf (None Seen); Urine Blood 2+ /uL (Negative); Urine Specific Gravity 1.014 (1.001-1.035); Urine WBC 1 /hpf (0 - 3)
[2020-12-27 04:13] LABS: Alcohol, Urine < 3.0 mg/dL (0-10); Amphetamine Screen, Urine NEGATIVE (NEGATIVE); Barbiturate Scree,Urine NEGATIVE (NEGATIVE); Benzodiazephine Screen, Urine NEGATIVE (NEGATIVE); Cannabinoid Screen, Urine POSITIVE (NEGATIVE); Cocaine Screen, Urine NEGATIVE (NEGATIVE); Opiate Scree,Urine NEGATIVE (NEGATIVE); Phencyclidine Screen, Urine NEGATIVE (NEGATIVE)
[2020-12-27 04:44] LABS: Lactic Acid w/Reflex 2.6 mmol/L (0.4-2.0)
[2020-12-27] MEDS ORDERED: cefTRIAXone 1GM/50ML D5W 50 ML IV ONE (05:00)
[2020-12-27] MEDS ORDERED: HYDROcodone-ACET 5/325MG TAB PO PRN (05:45)
[2020-12-27] MEDS ORDERED: TEMAZEPAM 15 MG CAP PO PRN (05:45)
[2020-12-27] MEDS ORDERED: MORPHINE SULFATE 4 MG/ML SYR/VIAL IV PRN (05:45)
[2020-12-27] MEDS ORDERED: ONDANSETRON HCL 4 MG/2 ML VIAL IV PRN (05:45)
[2020-12-27] MEDS ORDERED: ACETAMINOPHEN 325 MG TAB PO PRN (05:45)
[2020-12-27] MEDS ORDERED: DEXTROSE (50%) 50ML SYRG IV PRN (05:45)
[2020-12-27] MEDS: ACCU-CHEK COMFORT CURVE STRIP VI SCH ×3 (06:23→18:06)
[2020-12-27] MEDS: InsuLIN REG 1unit/0.01ml Soln (100units/ml) SC SCH ×3 (06:29→18:00)
[2020-12-27] MEDS ORDERED: MORPHINE SULFATE INJECTION 2 MG/ML SYRG IV PRN (06:45)
[2020-12-27] MEDS ORDERED: dilTIAZem 25 MG/5 ML VIAL IV ONE (07:30)
[2020-12-27] MEDS: LORazepam 2MG/ML-1ML VIAL IV PRN (08:04)
[2020-12-27] MEDS ORDERED: HALOPERIDOL LACTATE 5 MG/ML INJ VIAL IM ONE (09:30)
[2020-12-27] MEDS ORDERED: PANTOPRAZOLE 40 MG/10 ML VIAL INJ IV SCH (10:00)
[2020-12-27] MEDS ORDERED: AMLO-496 PO (10:04)
[2020-12-27] MEDS ORDERED: DICY20TA PO (10:04)
[2020-12-27] MEDS ORDERED: VENL75CA78 PO (10:04)
[2020-12-27] MEDS ORDERED: OXYC325T10 PO (10:04)
[2020-12-27] MEDS ORDERED: LACT10SO3 PO (10:04)
[2020-12-27] MEDS ORDERED: IBUP600T28 PO (10:04)
[2020-12-27] MEDS ORDERED: GABA400C11 PO (10:04)
[2020-12-27] MEDS ORDERED: HYDR-4798 PO (10:04)
[2020-12-27] MEDS ORDERED: HALOPERIDOL LACTATE 5 MG/ML INJ VIAL IM PRN (11:15)
[2020-12-27] MEDS ORDERED: LISINOPRIL 20 MG TAB PO ONE (13:00)
[2020-12-27] MEDS ORDERED: chlordiazePOXIDE HCL 5 MG CAP PO PRN (13:00)
[2020-12-27] MEDS ORDERED: amLODIPine BESYLATE 5 MG TAB PO ONE (13:00)
[2020-12-27] MEDS: HYDROcodone-ACET 10/325MG TAB PO PRN ×3 (13:35→22:33)
[2020-12-27] MEDS ORDERED: PANTOPRAZOLE 40 MG TAB PO ONE (15:00)
[2020-12-27] MEDS: cefTRIAXone 1GM/50ML D5W 50 ML IV SCH (22:06)
[2020-12-27] MEDS: GABAPENTIN 300 MG CAP PO SCH (22:33)
[2020-12-27 23:00] VITALS: BP_SYST 121; BP_SYST 125; BP_DIAS 50; BP_DIAS 62
[2020-12-28] MEDS: ACCU-CHEK COMFORT CURVE STRIP VI SCH ×5 (00:32→23:30)
[2020-12-28 05:00] VITALS: BP 134/80
[2020-12-28] MEDS: HYDROcodone-ACET 10/325MG TAB PO PRN ×4 (05:05→22:14)
[2020-12-28] MEDS: LORazepam 2MG/ML-1ML VIAL IV PRN (05:05)
[2020-12-28 05:30] LABS: Basophils # (auto) 0.1 10 ^3/uL (0-0.2); Basophils % (auto) 0.7 % (0.0-2.0); Eosinophils # (auto) 0 10 ^3/uL (0-0.8); Eosinophils % (auto) 0.1 % (0.0-7.0); Hematocrit 44.7 % (41.0-53.0); Hemoglobin 15.4 g/dL (13.5-17.5); Lymphocytes # (auto) 2.5 10 ^3/uL (0.4-5.4); Lymphocytes % (auto) 17.4 % (10.0-50.0); Mean Corpuscular Hemoglobin 31.2 pg (28.0-32.0); Mean Corpuscular Hgb Conc. 34.6 g/dL (32.0-36.0); Mean Corpuscular Volume 90.3 fL (80.0-100.0); Monocytes % (auto) 6.9 % (0.0-12.0); Neutrophils # (auto) 10.7 10 ^3/uL (1.6-8.6); Neutrophils % (auto) 74.9 % (37.0-80.0); Red Blood Cells 4.94 10^6/uL (4.5-5.90); Red Cell Distribution Width 13.3 % (11.8-14.3); White Blood Cell 14.3 10^3/uL (4.4-10.8)
[2020-12-28] MEDS: InsuLIN REG 1unit/0.01ml Soln (100units/ml) SC SCH ×5 (05:49→23:28)
[2020-12-28 05:54] LABS: Potassium 3.6 mmol/L (3.5-5.1)
[2020-12-28 06:03] LABS: Albumin 4.1 g/dL (3.4-5.0); BUN/Creatinine Ratio 21.8; Bilirubin, Total 0.8 mg/dL (0.2-1.0); Calcium 9.3 mg/dL (8.5-10.1); Total Protein 7.4 g/dL (6.4-8.2)
[2020-12-28 09:00] VITALS: BP 134/78
[2020-12-28] MEDS: GABAPENTIN 300 MG CAP PO SCH ×3 (09:19→21:07)
[2020-12-28] MEDS: MULTIPLE VITAMINS W/ MINERALS TAB PO SCH (09:19)
[2020-12-28] MEDS: amLODIPine BESYLATE 5 MG TAB PO SCH (09:20)
[2020-12-28] MEDS: PANTOPRAZOLE 40 MG TAB PO SCH (09:20)
[2020-12-28] MEDS ORDERED: LISINOPRIL 20 MG TAB PO SCH (10:00)
[2020-12-28] MEDS ORDERED: CITALOPRAM HYDROBR 20 MG TAB PO ONE (10:30)
[2020-12-28] MEDS ORDERED: ALPRAZolam 0.5 MG TAB PO ONE (10:30)
[2020-12-28] MEDS: PHENAZOPYRIDINE HCL 100 MG TAB PO SCH ×2 (11:47→17:09)
[2020-12-28 13:00] VITALS: BP 128/83
[2020-12-28 17:00] VITALS: BP 145/84
[2020-12-28] MEDS: HYDROmorphone HCL 2 MG/ML VL IV PRN (19:42)
[2020-12-28] MEDS ORDERED: HYDROcodone-ACET 10/325MG TAB PO PRN (19:45)
[2020-12-28] MEDS: cefTRIAXone 1GM/50ML D5W 50 ML IV SCH (20:57)
[2020-12-28 22:00] VITALS: BP 147/93
[2020-12-28] MEDS: ALPRAZolam 0.5 MG TAB PO PRN (23:14)
[2020-12-29] MEDS: HYDROmorphone HCL 2 MG/ML VL IV PRN ×2 (00:02→08:39)
[2020-12-29] MEDS: HYDROcodone-ACET 10/325MG TAB PO PRN ×3 (03:50→13:59)
[2020-12-29 04:53] VITALS: BP 140/76
[2020-12-29] MEDS: InsuLIN REG 1unit/0.01ml Soln (100units/ml) SC SCH ×2 (06:00→12:00)
[2020-12-29 06:18] LABS: BUN/Creatinine Ratio 27.3; Calcium 9.1 mg/dL (8.5-10.1); Potassium 3.9 mmol/L (3.5-5.1)
[2020-12-29] MEDS: ACCU-CHEK COMFORT CURVE STRIP VI SCH ×2 (06:35→11:50)
[2020-12-29] MEDS: PHENAZOPYRIDINE HCL 100 MG TAB PO SCH ×2 (08:38→11:50)
[2020-12-29 09:00] VITALS: BP 141/87
[2020-12-29 09:43] LABS: Hematocrit 41.2 % (41.0-53.0); Hemoglobin 14.1 g/dL (13.5-17.5); Mean Corpuscular Hemoglobin 30.5 pg (28.0-32.0); Mean Corpuscular Hgb Conc. 34.1 g/dL (32.0-36.0); Mean Corpuscular Volume 89.5 fL (80.0-100.0); Red Blood Cells 4.61 10^6/uL (4.5-5.90); Red Cell Distribution Width 12.9 % (11.8-14.3); White Blood Cell 8.8 10^3/uL (4.4-10.8)
[2020-12-29 09:53] LABS: Band Neutrophils % (manual) 0; Basophils % (manual) 0 (0.0-2.0); Blast Cells 0; Metamyelocytes % 0; Myelocytes % 0; Promyelocytes % 0; Reactive Lymphocytes 0
[2020-12-29] MEDS ORDERED: CITALOPRAM HYDROBR 20 MG TAB PO SCH (10:00)
[2020-12-29] MEDS: MULTIPLE VITAMINS W/ MINERALS TAB PO SCH (10:25)
[2020-12-29] MEDS ORDERED: CITA10TA8 PO (10:26)
[2020-12-29] MEDS: GABAPENTIN 300 MG CAP PO SCH (10:26)
[2020-12-29] MEDS ORDERED: CIPR-173 PO (10:26)
[2020-12-29] MEDS: amLODIPine BESYLATE 5 MG TAB PO SCH (10:27)
[2020-12-29] MEDS: PANTOPRAZOLE 40 MG TAB PO SCH (10:28)
[2020-12-29] MEDS: ALPRAZolam 0.5 MG TAB PO PRN (11:51)
[2020-12-29 11:52] LABS: Eosinophils % (manual) 1 (0-7); Lymphocytes % (manual) 40 (10.0-50.0); Monocytes % (manual) 8 (0-12)
[2020-12-29 13:00] VITALS: BP 147/92
[2020-12-29 13:01] VITALS: BP 147/90
== END 2020-12-29 15:15 | disposition home or self-care (01) | DRG 463 ==
LOC: EDBD 23:25 → ER 23:26 → OVERFLOW 12-27 05:31 → WEST WING 12-27 22:09 → TELE-WESTW 12-29 01:11
PROVIDERS: ADMIT Nurse Practitioner; ATTEND Internal Medicine
DX: N12 Tubulo-interstitial nephritis, not specified as acute or chronic (principal); N17.0 Acute kidney failure with tubular necrosis; I67.4 Hypertensive encephalopathy; E11.43 Type 2 diabetes mellitus with diabetic autonomic (poly)neuropathy; K31.84 Gastroparesis; I16.1 Hypertensive emergency; K29.70 Gastritis, unspecified, without bleeding; F12.90 Cannabis use, unspecified, uncomplicated; F41.9 Anxiety disorder, unspecified; M43.17 Spondylolisthesis, lumbosacral region; Z20.822 Contact with and (suspected) exposure to COVID-19; Z88.8 Allergy status to other drugs, medicaments and biological substances; Z88.5 Allergy status to narcotic agent; Z87.19 Personal history of other diseases of the digestive system; Z79.84 Long term (current) use of oral hypoglycemic drugs
CPT/HCPCS: 36415; 70450; 74177; 80048; 80053; 80307; 81001; 82550; 82962; 83036; 83605; 83690; 84443; 85007; 85025; 85027; 87040; 87086; 87426; 93005; 96361; 96365; 96375; 96376; C9113; G0378; J0696; J1815; J1885; J2405; J3490

== ENCOUNTER 2021-05-16 15:15 | Emergency (ER) | payer MEDICAID ==
[~2021-05-16] VITALS: Ht 180.3 cm; Wt 81.6 kg
[~2021-05-16 15:15] MED LIST changes: +AMLO-496 PO; +CIPR-173 PO; +CITA10TA8 PO; +DICY20TA PO; +GABA400C11 PO; +HYDR-4798 PO; +LACT10SO3 PO; +OXYC325T10 PO
[2021-05-16] MEDS ORDERED: SODIUM CHLORIDE 0.9% 1,000 ML IV ONE (15:45)
[2021-05-16] MEDS ORDERED: diphenhdrAMINE HCL 50 MG/1 ML VL IV ONE (15:45)
[2021-05-16] MEDS ORDERED: FAMOTIDINE (10MG/ML) 2ML VL IV ONE (15:45)
[2021-05-16] MEDS ORDERED: METOCLOPRAMIDE HCL 5MG/ml INJ 2ml VIAL IV ONE (15:45)
[2021-05-16] MEDS ORDERED: LORazepam 2MG/ML-1ML VIAL IV ONE (16:30)
[2021-05-16 16:44] LABS: Basophils # (auto) 0 10 ^3/uL (0-0.2); Basophils % (auto) 0.1 % (0.0-2.0); Eosinophils # (auto) 0 10 ^3/uL (0-0.8); Hemoglobin 13.6 g/dL (13.5-17.5); Lymphocytes # (auto) 0.5 10 ^3/uL (0.4-5.4); Lymphocytes % (auto) 5.6 % (10.0-50.0); Mean Corpuscular Hemoglobin 30.2 pg (28.0-32.0); Mean Corpuscular Hgb Conc. 34.7 g/dL (32.0-36.0); Mean Corpuscular Volume 87.1 fL (80.0-100.0); Monocytes # (auto) 0.2 10 ^3/uL (0-1.3); Monocytes % (auto) 2.4 % (0.0-12.0); Neutrophils # (auto) 7.7 10 ^3/uL (1.6-8.6); Neutrophils % (auto) 91.9 % (37.0-80.0); Nucleated Red Blood Cells % 0.1 %; Red Blood Cells 4.48 10^6/uL (4.5-5.90); Red Cell Distribution Width 12.7 % (11.8-14.3); White Blood Cell 8.4 10^3/uL (4.4-10.8)
[2021-05-16] MEDS ORDERED: PROCHLORPERAZINE EDISYLATE 5 MG/ML 2ML VIAL IV ONE (16:45)
[2021-05-16 17:01] LABS: Albumin 4.2 g/dL (3.4-5.0); Calcium 9.5 mg/dL (8.5-10.1); Potassium 3.8 mmol/L (3.5-5.1)
[2021-05-16 17:06] LABS: Bilirubin, Total 0.7 mg/dL (0.2-1.0); Total Protein 7.5 g/dL (6.4-8.2)
[2021-05-16] MEDS ORDERED: IOHEXOL 300 MG/ML 100ML BOTTLE IJ ONE (17:39)
[2021-05-16 17:49] LABS: Alcohol, Urine < 3.0 mg/dL (0-10); Amphetamine Screen, Urine NEGATIVE (NEGATIVE); Barbiturate Scree,Urine NEGATIVE (NEGATIVE); Benzodiazephine Screen, Urine NEGATIVE (NEGATIVE); Cannabinoid Screen, Urine POSITIVE (NEGATIVE); Cocaine Screen, Urine NEGATIVE (NEGATIVE); Opiate Scree,Urine NEGATIVE (NEGATIVE); Phencyclidine Screen, Urine NEGATIVE (NEGATIVE)
[2021-05-16 18:24] LABS: Urine Bacteria NONE SEEN /hpf (None Seen); Urine Blood 2+ /uL (Negative); Urine Specific Gravity 1.013 (1.001-1.035); Urine WBC 2 /hpf (0 - 3)
[2021-05-16] MEDS ORDERED: SULF10SO15 OP (19:15)
[2021-05-16 19:46] VITALS: BP 185/84
== END 2021-05-16 19:09 | disposition home or self-care (01) ==
LOC: EDBD 15:15 → ER 15:15
DX: R10.84 Generalized abdominal pain (principal); K29.70 Gastritis, unspecified, without bleeding
CPT/HCPCS: 36415; 74176; 80053; 80307; 81001; 82010; 83690; 85025; 96361; 96374; 96375; 99285; J0780; J1200; J2060; J3490; J7030

== ENCOUNTER 2021-05-19 15:26 | Emergency (ER) | payer MEDICAID ==
[~2021-05-19] VITALS: Ht 180.3 cm; Wt 73.5 kg
[~2021-05-19 15:26] MED LIST changes: +SULF10SO15 OP
[2021-05-19] MEDS ORDERED: ONDANSETRON HCL 4 MG/2 ML VIAL IV ONE (16:00)
[2021-05-19] MEDS ORDERED: SODIUM CHLORIDE 0.9% 1,000 ML IV ONE (16:00)
[2021-05-19 17:36] VITALS: BP 103/66
== END 2021-05-19 18:10 | disposition home or self-care (01) ==
LOC: ER 15:26
DX: K31.84 Gastroparesis (principal); E11.9 Type 2 diabetes mellitus without complications; I10 Essential (primary) hypertension; F12.10 Cannabis abuse, uncomplicated; Z88.6 Allergy status to analgesic agent
CPT/HCPCS: 93005; 96361; 96374; 99285; J2405; J7030

== ENCOUNTER 2021-05-23 11:31 | Emergency (ER) | payer MEDICAID ==
[~2021-05-23] VITALS: Ht 180.3 cm; Wt 77.1 kg
[2021-05-23] MEDS ORDERED: SODIUM CHLORIDE 0.9% 1,000 ML IVB ONE (11:45)
[2021-05-23] MEDS ORDERED: PANTOPRAZOLE 40 MG/10 ML VIAL INJ IV ONE (12:15)
[2021-05-23 12:24] LABS: Basophils # (auto) 0.1 10 ^3/uL (0-0.2); Basophils % (auto) 0.7 % (0.0-2.0); Eosinophils # (auto) 0 10 ^3/uL (0-0.8); Eosinophils % (auto) 0.3 % (0.0-7.0); Hematocrit 39.8 % (41.0-53.0); Mean Corpuscular Hemoglobin 30.5 pg (28.0-32.0); Mean Corpuscular Hgb Conc. 35.3 g/dL (32.0-36.0); Mean Corpuscular Volume 86.4 fL (80.0-100.0); Monocytes # (auto) 0.7 10 ^3/uL (0-1.3); Monocytes % (auto) 9.2 % (0.0-12.0); Neutrophils % (auto) 63.8 % (37.0-80.0); Nucleated Red Blood Cells % 0.2 %; Red Cell Distribution Width 12.6 % (11.8-14.3); White Blood Cell 7.8 10^3/uL (4.4-10.8)
[2021-05-23 12:46] LABS: Calcium 9.6 mg/dL (8.5-10.1)
[2021-05-23 12:49] LABS: BUN/Creatinine Ratio 16.8; Bilirubin, Total 0.5 mg/dL (0.2-1.0); Total Protein 7.4 g/dL (6.4-8.2)
[2021-05-23 13:16] VITALS: BP 106/63
[2021-05-23] MEDS: ACETAMINOPHEN 325 MG TAB PO ONE ×2 (14:50→14:53)
== END 2021-05-23 15:00 | disposition home or self-care (01) ==
LOC: ER 11:31
DX: S40.011A Contusion of right shoulder, initial encounter (principal); K31.84 Gastroparesis; F12.10 Cannabis abuse, uncomplicated; I10 Essential (primary) hypertension; E11.9 Type 2 diabetes mellitus without complications; Z88.6 Allergy status to analgesic agent; Z88.8 Allergy status to other drugs, medicaments and biological substances; X58.XXXA Exposure to other specified factors, initial encounter; Y93.89 Activity, other specified; Y92.89 Other specified places as the place of occurrence of the external cause; Y99.8 Other external cause status
CPT/HCPCS: 36415; 73030; 80053; 85025; 96361; 96374; 99284; C9113; J7030

== ENCOUNTER 2021-07-12 13:54 | Inpatient (IN) | payer MEDICAID ==
[~2021-07-12] VITALS: Ht 172.7 cm; Wt 77.1 kg
[2021-07-12] MEDS ORDERED: HYDROmorphone HCL 2 MG/ML VL IV ONE (14:30)
[2021-07-12] MEDS ORDERED: LORazepam 2MG/ML-1ML VIAL IV ONE (14:30)
[2021-07-12] MEDS ORDERED: ONDANSETRON HCL 4 MG/2 ML VIAL IV ONE (14:30)
[2021-07-12 15:05] LABS: Mean Corpuscular Volume 88.6 fL (80.0-100.0)
[2021-07-12 15:12] LABS: Basophils # (auto) 0.1 10 ^3/uL (0-0.2); Basophils % (auto) 0.6 % (0.0-2.0); Eosinophils # (auto) 0 10 ^3/uL (0-0.8); Eosinophils % (auto) 0.1 % (0.0-7.0); Hematocrit 43.5 % (41.0-53.0); Lymphocytes % (auto) 7.4 % (10.0-50.0); Mean Corpuscular Hemoglobin 30.5 pg (28.0-32.0); Mean Corpuscular Hgb Conc. 34.4 g/dL (32.0-36.0); Monocytes # (auto) 0.3 10 ^3/uL (0-1.3); Monocytes % (auto) 2.6 % (0.0-12.0); Neutrophils # (auto) 11.9 10 ^3/uL (1.6-8.6); Neutrophils % (auto) 89.3 % (37.0-80.0); Nucleated Red Blood Cells % 0.1 %; Red Blood Cells 4.91 10^6/uL (4.5-5.90); Red Cell Distribution Width 13.4 % (11.8-14.3); White Blood Cell 13.4 10^3/uL (4.4-10.8)
[2021-07-12 15:22] LABS: Albumin 4.3 g/dL (3.4-5.0); Calcium 10.1 mg/dL (8.5-10.1); Potassium 4.7 mmol/L (3.5-5.1)
[2021-07-12 15:25] LABS: BUN/Creatinine Ratio 16.1; Bilirubin, Total 0.6 mg/dL (0.2-1.0); Total Protein 8.2 g/dL (6.4-8.2)
[2021-07-12] MEDS ORDERED: PANTOPRAZOLE 40 MG/10 ML VIAL INJ IV ONE (16:15)
[2021-07-12] MEDS ORDERED: KETOROLAC TROMETH 30 MG/ML 1ML VIAL IV ONE (16:15)
[2021-07-12] MEDS ORDERED: NITROGLYCERIN 0.4 MG SL TAB SL PRN (16:15)
[2021-07-12] MEDS ORDERED: LABETALOL HCL 5 MG/ML 4ML SYRINGE IV PRN (16:15)
[2021-07-12] MEDS ORDERED: ONDANSETRON HCL 4 MG/2 ML VIAL IV PRN ×2 (16:15→19:15)
[2021-07-12] MEDS ORDERED: HYDROcodone-ACET 5/325MG TAB PO PRN ×2 (16:15→19:15)
[2021-07-12] MEDS ORDERED: MORPHINE SULFATE INJECTION 2 MG/ML SYRG IV PRN ×2 (16:15→19:15)
[2021-07-12] MEDS ORDERED: LABETALOL HCL 5 MG/ML 4ML SYRINGE IV ONE (16:15)
[2021-07-12] MEDS ORDERED: DEXTROSE (50%) 50ML SYRG IV PRN (16:15)
[2021-07-12] MEDS ORDERED: HYDROmorphone HCL 2 MG/ML VL ONE (17:30)
[2021-07-12] MEDS: HYDROmorphone HCL 2 MG/ML VL IV PRN ×2 (17:40→21:55)
[2021-07-12] MEDS: ACCU-CHEK COMFORT CURVE STRIP VI SCH ×2 (18:21→22:10)
[2021-07-12 18:39] LABS: Lactic Acid w/Reflex 2.5 mmol/L (0.4-2.0)
[2021-07-12] MEDS: InsuLIN REG 1unit/0.01ml Soln (100units/ml) SC SCH (18:56)
[2021-07-12] MEDS ORDERED: hydrALAZINE HCL 20 MG/ML VL IV PRN (19:00)
[2021-07-12] MEDS ORDERED: LABETALOL HCL 200 MG TAB PO ONE (19:00)
[2021-07-12] MEDS ORDERED: BENAZEPRIL HCL 10 MG TAB PO ONE (19:00)
[2021-07-12] MEDS ORDERED: IPRATROPIUM BROM 0.5 MG/2.5ML INH SOL NEB ONE (19:15)
[2021-07-12] MEDS ORDERED: LACTULOSE 20Gm/30ML SOLN PO PRN (19:15)
[2021-07-12] MEDS ORDERED: ACETAMINOPHEN 325 MG TAB PO PRN (19:15)
[2021-07-12] MEDS ORDERED: DOCUSATE SOD 100 MG CAP PO PRN (19:15)
[2021-07-12] MEDS ORDERED: HYDROcodone-ACET 5/325MG TAB PO ONE (19:15)
[2021-07-12] MEDS ORDERED: LORazepam 0.5 MG TAB PO PRN (19:15)
[2021-07-12] MEDS ORDERED: DICYCLOMINE HCL 10 MG CAP PO PRN (19:15)
[2021-07-12 20:36] LABS: INR 1.01 (0.9-1.15); Partial Thromboplastin Time 23.4 sec (23.6-33.0)
[2021-07-12 20:40] LABS: Magnesium 1.8 mg/dL (1.6-2.6); Phosphorus 2.2 mg/dL (2.5-4.90)
[2021-07-12] MEDS ORDERED: IPRATROPIUM BROM 0.5 MG/2.5ML INH SOL NEB SCH (22:00)
[2021-07-12] MEDS ORDERED: ATORVASTATIN 20 MG TAB PO SCH (22:00)
[2021-07-12] MEDS ORDERED: InsuLIN REG 1unit/0.01ml Soln (100units/ml) SC SCH (22:00)
[2021-07-12] MEDS: GABAPENTIN 100 MG CAP PO SCH (22:18)
[2021-07-12 23:58] VITALS: BP 105/63
[2021-07-13] MEDS ORDERED: cefTRIAXone 1GM/50ML D5W 50 ML IV ONE (01:15)
[2021-07-13] MEDS ORDERED: CLINDAMYCIN 600MG IV 50 ML IV ONE (01:15)
[2021-07-13] MEDS: HYDROmorphone HCL 2 MG/ML VL IV PRN ×3 (02:48→12:48)
[2021-07-13 05:00] VITALS: BP 109/56
[2021-07-13] MEDS ORDERED: SPIRONOLACTONE 25 MG TAB PO SCH (06:00)
[2021-07-13] MEDS: CLINDAMYCIN 600MG IV 50 ML IV SCH ×2 (06:03→13:03)
[2021-07-13] MEDS: GABAPENTIN 100 MG CAP PO SCH ×2 (06:03→12:52)
[2021-07-13 06:59] LABS: Basophils # (auto) 0 10 ^3/uL (0-0.2); Basophils % (auto) 0.3 % (0.0-2.0); Eosinophils # (auto) 0 10 ^3/uL (0-0.8); Eosinophils % (auto) 0.1 % (0.0-7.0); Hematocrit 38.1 % (41.0-53.0); Hemoglobin 13.2 g/dL (13.5-17.5); Lymphocytes # (auto) 1.9 10 ^3/uL (0.4-5.4); Lymphocytes % (auto) 17.9 % (10.0-50.0); Mean Corpuscular Hemoglobin 30.6 pg (28.0-32.0); Mean Corpuscular Hgb Conc. 34.6 g/dL (32.0-36.0); Mean Corpuscular Volume 88.7 fL (80.0-100.0); Monocytes # (auto) 0.9 10 ^3/uL (0-1.3); Monocytes % (auto) 8.6 % (0.0-12.0); Neutrophils # (auto) 7.9 10 ^3/uL (1.6-8.6); Neutrophils % (auto) 73.1 % (37.0-80.0); Nucleated Red Blood Cells % 0.2 %; Red Cell Distribution Width 13.5 % (11.8-14.3); White Blood Cell 10.8 10^3/uL (4.4-10.8)
[2021-07-13] MEDS ORDERED: SUCRALFATE 1 GM/10 ML ORAL SUSP PO SCH (07:00)
[2021-07-13] MEDS: ACCU-CHEK COMFORT CURVE STRIP VI SCH ×2 (07:00→11:30)
[2021-07-13] MEDS: InsuLIN REG 1unit/0.01ml Soln (100units/ml) SC SCH ×2 (07:00→11:30)
[2021-07-13 07:13] LABS: Albumin 3.6 g/dL (3.4-5.0); Calcium 9.6 mg/dL (8.5-10.1); Potassium 4.6 mmol/L (3.5-5.1)
[2021-07-13 07:15] LABS: INR 1.05 (0.9-1.15); Partial Thromboplastin Time 25.7 sec (23.6-33.0)
[2021-07-13 07:21] LABS: BUN/Creatinine Ratio 16.4; Bilirubin, Total 0.6 mg/dL (0.2-1.0); CRP High Sensitivity 0.4 mg/dL (< 0.3); Phosphorus 4.5 mg/dL (2.5-4.90); Total Protein 6.7 g/dL (6.4-8.2)
[2021-07-13] MEDS: NEUTRA-PHOS TABLET PO SCH ×2 (08:00→12:52)
[2021-07-13 08:13] LABS: Thyroid Stimulating Hormone 0.96 uIU/mL (0.358-3.74)
[2021-07-13 08:57] VITALS: BP 138/82
[2021-07-13 10:00] LABS: Uric Acid 5.5 mg/dL (3.5-7.2)
[2021-07-13] MEDS ORDERED: ENOXAPARIN SOD 40 MG/0.4 ML SYRINGE SC SCH (10:00)
[2021-07-13] MEDS ORDERED: BENAZEPRIL HCL 10 MG TAB PO SCH (10:00)
[2021-07-13] MEDS ORDERED: CITALOPRAM HYDROBR 20 MG TAB PO SCH (10:00)
[2021-07-13] MEDS ORDERED: MAGNESIUM OXIDE 400 MG TAB PO SCH (10:00)
[2021-07-13] MEDS ORDERED: PANTOPRAZOLE 40 MG/10 ML VIAL INJ IV SCH (10:00)
[2021-07-13] MEDS ORDERED: LABETALOL HCL 200 MG TAB PO SCH (10:00)
[2021-07-13] MEDS ORDERED: ASPirin 81 mg TAB PO SCH (10:00)
[2021-07-13 12:43] VITALS: BP 142/90
[2021-07-13 13:58] VITALS: BP 142/90
[2021-07-13 17:00] VITALS: BP 106/69
[2021-07-13] MEDS ORDERED: cefTRIAXone 1GM/50ML D5W 50 ML IV SCH (21:00)
== END 2021-07-13 16:20 | disposition home or self-care (01) | DRG 48 ==
LOC: ER 13:54 → EDBD 13:54 → TELE 16:13 → TELE-CENTR 23:31
PROVIDERS: ADMIT Hospitalist; ATTEND Family Medicine
DX: E11.43 Type 2 diabetes mellitus with diabetic autonomic (poly)neuropathy (principal); E24.9 Cushing's syndrome, unspecified; E27.8 Other specified disorders of adrenal gland; K31.84 Gastroparesis; R11.10 Vomiting, unspecified; K29.00 Acute gastritis without bleeding; I16.1 Hypertensive emergency; E26.09 Other primary hyperaldosteronism; E78.5 Hyperlipidemia, unspecified; F10.10 Alcohol abuse, uncomplicated; F11.20 Opioid dependence, uncomplicated; F12.90 Cannabis use, unspecified, uncomplicated; F17.200 Nicotine dependence, unspecified, uncomplicated; G89.4 Chronic pain syndrome; K29.50 Unspecified chronic gastritis without bleeding; M19.90 Unspecified osteoarthritis, unspecified site; Z20.822 Contact with and (suspected) exposure to COVID-19; T38.0X5A Adverse effect of glucocorticoids and synthetic analogues, initial encounter; M85.80 Other specified disorders of bone density and structure, unspecified site; N39.0 Urinary tract infection, site not specified; Z79.84 Long term (current) use of oral hypoglycemic drugs; Z91.19 Patient's noncompliance with other medical treatment and regimen; Z88.2 Allergy status to sulfonamides; Z88.6 Allergy status to analgesic agent; Z88.8 Allergy status to other drugs, medicaments and biological substances; Y92.89 Other specified places as the place of occurrence of the external cause; Z79.899 Other long term (current) drug therapy; Z82.49 Family history of ischemic heart disease and other diseases of the circulatory system; Z83.3 Family history of diabetes mellitus; Z76.5 Malingerer [conscious simulation]
CPT/HCPCS: 36415; 70450; 74176; 80053; 80061; 82024; 82088; 82533; 82550; 82728; 82962; 83036; 83605; 83615; 83690; 83735; 83880; 84100; 84244; 84443; 84484; 84550; 85025; 85379; 85610; 85652; 85730; 86141; 87040; 87086; 93005; 96365; 96368; 96375; C9113; G0378; J0696; J1815; J1885; J2405; J3490

== ENCOUNTER 2021-07-14 07:43 | Emergency (ER) | payer MEDICAID ==
[~2021-07-14] VITALS: Ht 177.8 cm; Wt 81.6 kg
[2021-07-14] MEDS ORDERED: SODIUM CHLORIDE 0.9% 1,000 ML IV ONE (08:00)
[2021-07-14] MEDS ORDERED: ONDANSETRON HCL 4 MG/2 ML VIAL IV ONE ×2 (08:00→11:15)
[2021-07-14] MEDS ORDERED: HYDROmorphone HCL 2 MG/ML VL IV ONE ×3 (08:00→11:15)
[2021-07-14 09:07] LABS: Urine Bacteria NONE SEEN /hpf (None Seen); Urine Blood 2+ /uL (Negative); Urine Budding Yeast OCCASIONAL /hpf (None Seen); Urine Hyaline Cast FEW /lpf (0 - 2); Urine Specific Gravity 1.015 (1.001-1.035); Urine WBC <1 /hpf (0 - 3)
[2021-07-14 09:44] LABS: Basophils # (auto) 0 10 ^3/uL (0-0.2); Basophils % (auto) 0.4 % (0.0-2.0); Eosinophils # (auto) 0 10 ^3/uL (0-0.8); Hematocrit 41.8 % (41.0-53.0); Hemoglobin 14.6 g/dL (13.5-17.5); Lymphocytes % (auto) 9.4 % (10.0-50.0); Mean Corpuscular Hemoglobin 30.6 pg (28.0-32.0); Mean Corpuscular Volume 87.5 fL (80.0-100.0); Monocytes # (auto) 0.3 10 ^3/uL (0-1.3); Monocytes % (auto) 2.4 % (0.0-12.0); Neutrophils # (auto) 9.8 10 ^3/uL (1.6-8.6); Neutrophils % (auto) 87.8 % (37.0-80.0); Nucleated Red Blood Cells % 0.1 %; Red Blood Cells 4.78 10^6/uL (4.5-5.90); Red Cell Distribution Width 13.3 % (11.8-14.3); White Blood Cell 11.1 10^3/uL (4.4-10.8)
[2021-07-14 10:00] LABS: Albumin 4.2 g/dL (3.4-5.0); Calcium 9.6 mg/dL (8.5-10.1); Potassium 4.4 mmol/L (3.5-5.1)
[2021-07-14] MEDS ORDERED: LORazepam 2MG/ML-1ML VIAL IV ONE (10:00)
[2021-07-14 10:05] LABS: Bilirubin, Total 0.7 mg/dL (0.2-1.0); Total Protein 7.9 g/dL (6.4-8.2)
[2021-07-14] MEDS ORDERED: KETOROLAC TROMETH 30 MG/ML 1ML VIAL IV ONE (11:15)
[2021-07-14] MEDS ORDERED: diazePAM 5 MG TAB PO ONE (11:15)
[2021-07-14] MEDS ORDERED: diphenhdrAMINE HCL 50 MG/1 ML VL IV ONE (11:15)
[2021-07-14 13:36] VITALS: BP 175/104
== END 2021-07-14 13:43 | disposition home or self-care (01) ==
LOC: ER 07:43 → EDBD 07:43 → ER 13:43
DX: E11.43 Type 2 diabetes mellitus with diabetic autonomic (poly)neuropathy (principal); K31.84 Gastroparesis; I10 Essential (primary) hypertension; F12.10 Cannabis abuse, uncomplicated; Z88.2 Allergy status to sulfonamides; Z88.6 Allergy status to analgesic agent
CPT/HCPCS: 36415; 71045; 74176; 80053; 81001; 83690; 85025; 96361; 96374; 96375; 96376; 99285; J1170; J1200; J1885; J2060; J2405; J7030

== ENCOUNTER → 2021-11-18 | Emergency (ER) | payer MEDICAID ==
[~2021-11-18] VITALS: Ht 180.3 cm; Wt 81.0 kg
[2021-11-19 01:25] VITALS: BP 215/132
[2021-11-19 02:57] LABS: Urine Bacteria NONE SEEN /hpf (None Seen); Urine Blood 3+ /uL (Negative); Urine Mucus FEW (None Seen); Urine Specific Gravity 1.035 (1.001-1.035); Urine WBC 3 /hpf (0 - 3)
== END | disposition left against medical advice (07) ==
LOC: ER 23:33
DX: R10.9 Unspecified abdominal pain (principal); Z53.21 Procedure and treatment not carried out due to patient leaving prior to being seen by health care provider
CPT/HCPCS: 81001

== ENCOUNTER 2021-12-09 12:22 | Emergency (ER) | payer MEDICAID ==
[~2021-12-09] VITALS: Ht 182.9 cm; Wt 77.2 kg
[2021-12-09] MEDS ORDERED: SODIUM CHLORIDE 0.9% 1,000 ML IVB ONE (12:30)
[2021-12-09] MEDS ORDERED: PROCHLORPERAZINE EDISYLATE 5 MG/ML 2ML VIAL IV ONE (12:30)
[2021-12-09] MEDS ORDERED: HYDROmorphone HCL 2 MG/ML VL/or syr IV ONE ×2 (12:30→17:00)
[2021-12-09] MEDS ORDERED: PANTOPRAZOLE 40 MG/10 ML VIAL INJ IV ONE (12:30)
[2021-12-09 13:14] LABS: Basophils # (auto) 0 10 ^3/uL (0-0.2); Basophils % (auto) 0.5 % (0.0-2.0); Eosinophils # (auto) 0.1 10 ^3/uL (0-0.8); Eosinophils % (auto) 0.9 % (0.0-7.0); Hematocrit 39.7 % (41.0-53.0); Hemoglobin 13.4 g/dL (13.5-17.5); Lymphocytes # (auto) 1.6 10 ^3/uL (0.4-5.4); Lymphocytes % (auto) 19.3 % (10.0-50.0); Mean Corpuscular Hemoglobin 29.2 pg (28.0-32.0); Mean Corpuscular Hgb Conc. 33.7 g/dL (32.0-36.0); Mean Corpuscular Volume 86.5 fL (80.0-100.0); Monocytes # (auto) 0.4 10 ^3/uL (0-1.3); Monocytes % (auto) 4.9 % (0.0-12.0); Neutrophils % (auto) 74.4 % (37.0-80.0); Nucleated Red Blood Cells % 0.1 %; Red Blood Cells 4.59 10^6/uL (4.5-5.90); Red Cell Distribution Width 12.5 % (11.8-14.3); White Blood Cell 8.1 10^3/uL (4.4-10.8)
[2021-12-09 13:29] LABS: Albumin 4.4 g/dL (3.4-5.0); BUN/Creatinine Ratio 20.5; Calcium 9.1 mg/dL (8.5-10.1); Potassium 4.3 mmol/L (3.5-5.1)
[2021-12-09 13:32] LABS: Bilirubin, Total 0.5 mg/dL (0.2-1.0); Total Protein 7.6 g/dL (6.4-8.2)
[2021-12-09 14:40] LABS: Urine Bacteria NONE SEEN /hpf (None Seen); Urine Blood 1+ /uL (Negative); Urine Specific Gravity 1.011 (1.001-1.035); Urine WBC 1 /hpf (0 - 3)
[2021-12-09 14:46] LABS: Alcohol, Urine < 3.0 mg/dL (0-10); Amphetamine Screen, Urine NEGATIVE (NEGATIVE); Barbiturate Scree,Urine NEGATIVE (NEGATIVE); Benzodiazephine Screen, Urine NEGATIVE (NEGATIVE); Cannabinoid Screen, Urine POSITIVE (NEGATIVE); Cocaine Screen, Urine NEGATIVE (NEGATIVE); Opiate Scree,Urine NEGATIVE (NEGATIVE); Phencyclidine Screen, Urine NEGATIVE (NEGATIVE)
[2021-12-09] MEDS ORDERED: LIDOCAINE VISCOUS 2% 15ML UD PO ONE (16:00)
[2021-12-09] MEDS ORDERED: ALUM & MAG HYDROX-SIMETH LIQ(MAALOX) 30 ML PO ONE (16:00)
[2021-12-09] MEDS ORDERED: DONNATAL 5ml ORAL Elix (BELLADONNA ALK-PHENOBARB) PO ONE (16:00)
[2021-12-09] MEDS ORDERED: LORazepam 2MG/ML-1ML VIAL IV ONE ×2 (16:00→17:00)
[2021-12-09] MEDS ORDERED: ONDA-144 PO (17:52)
[2021-12-09] MEDS ORDERED: PANT40TA2 PO (17:52)
[2021-12-09 18:15] VITALS: BP 162/80
== END 2021-12-09 18:50 | disposition home or self-care (01) ==
LOC: ER 12:22 → EDBD 12:22 → ER 18:30
DX: R11.2 Nausea with vomiting, unspecified (principal); F41.8 Other specified anxiety disorders; E11.9 Type 2 diabetes mellitus without complications; Z79.899 Other long term (current) drug therapy; Z88.2 Allergy status to sulfonamides; Z88.8 Allergy status to other drugs, medicaments and biological substances; Z88.5 Allergy status to narcotic agent
CPT/HCPCS: 36415; 74176; 80053; 80307; 81001; 82010; 83690; 85025; 96361; 96374; 96375; 99285; C9113; J0780; J1170; J2060; J7030

== ENCOUNTER 2021-12-13 04:33 | Emergency (ER) | payer MEDICAID ==
[~2021-12-13] VITALS: Ht 177.8 cm; Wt 77.0 kg
[~2021-12-13 04:33] MED LIST changes: +ONDA-144 PO; +PANT40TA2 PO
[2021-12-13] MEDS ORDERED: HALOPERIDOL LACTATE 5 MG/ML INJ VIAL IV ONE (05:00)
[2021-12-13] MEDS ORDERED: SODIUM CHLORIDE 0.9% 1,000 ML IV ONE ×2 (05:00→08:00)
[2021-12-13] MEDS ORDERED: KETOROLAC TROMETH 30 MG/ML 1ML VIAL IV ONE (05:00)
[2021-12-13] MEDS ORDERED: LORazepam 2MG/ML-1ML VIAL IV ONE (05:15)
[2021-12-13 05:53] LABS: Basophils # (auto) 0 10 ^3/uL (0-0.2); Basophils % (auto) 0.2 % (0.0-2.0); Eosinophils # (auto) 0.1 10 ^3/uL (0-0.8); Eosinophils % (auto) 0.5 % (0.0-7.0); Hematocrit 40.1 % (41.0-53.0); Hemoglobin 13.7 g/dL (13.5-17.5); Lymphocytes % (auto) 17.3 % (10.0-50.0); Mean Corpuscular Hemoglobin 29.1 pg (28.0-32.0); Mean Corpuscular Hgb Conc. 34.2 g/dL (32.0-36.0); Mean Corpuscular Volume 85.2 fL (80.0-100.0); Monocytes # (auto) 0.6 10 ^3/uL (0-1.3); Monocytes % (auto) 5.6 % (0.0-12.0); Neutrophils # (auto) 8.7 10 ^3/uL (1.6-8.6); Neutrophils % (auto) 76.4 % (37.0-80.0); Red Blood Cells 4.71 10^6/uL (4.5-5.90); Red Cell Distribution Width 12.4 % (11.8-14.3); White Blood Cell 11.4 10^3/uL (4.4-10.8)
[2021-12-13 06:09] LABS: Albumin 4.7 g/dL (3.4-5.0); Calcium 10.1 mg/dL (8.5-10.1)
[2021-12-13 06:15] LABS: BUN/Creatinine Ratio 17.1; Bilirubin, Total 0.9 mg/dL (0.2-1.0); Total Protein 8.1 g/dL (6.4-8.2)
[2021-12-13] MEDS ORDERED: PANTOPRAZOLE 40 MG/10 ML VIAL INJ IV ONE ×2 (06:30→10:30)
[2021-12-13] MEDS ORDERED: HYDROmorphone HCL 2 MG/ML VL/or syr IV ONE ×2 (06:30→08:00)
[2021-12-13] MEDS ORDERED: ONDANSETRON HCL 4 MG/2 ML VIAL IV ONE (08:00)
[2021-12-13] MEDS ORDERED: cloNIDine HCL 0.1 MG TAB PO ONE ×3 (08:00→09:30)
[2021-12-13] MEDS ORDERED: LIDOCAINE VISCOUS 2% 15ML UD PO ONE (10:30)
[2021-12-13] MEDS ORDERED: ALUM & MAG HYDROX-SIMETH LIQ(MAALOX) 30 ML PO ONE (10:30)
[2021-12-13] MEDS ORDERED: DONNATAL 5ml ORAL Elix (BELLADONNA ALK-PHENOBARB) PO ONE (10:30)
[2021-12-13 10:51] VITALS: BP 149/73
== END 2021-12-13 11:26 | disposition home or self-care (01) ==
LOC: ER 04:33 → EDBD 04:33 → EDSEX 04:33 → ER 11:26
DX: R10.9 Unspecified abdominal pain (principal); E11.9 Type 2 diabetes mellitus without complications; I10 Essential (primary) hypertension; F12.10 Cannabis abuse, uncomplicated; Z88.2 Allergy status to sulfonamides; Z88.6 Allergy status to analgesic agent; Z88.8 Allergy status to other drugs, medicaments and biological substances
CPT/HCPCS: 36415; 80053; 83690; 85025; 93005; 96361; 96374; 96375; 96376; 99285; C9113; J1170; J1630; J1885; J2060; J2405; J7030

== ENCOUNTER 2022-06-21 02:53 | Emergency (ER) | payer MEDICAID ==
[~2022-06-21] VITALS: Ht 180.3 cm; Wt 86.2 kg
[2022-06-21] MEDS ORDERED: LORazepam 0.5 MG TAB PO ONE ×2 (03:15→08:45)
[2022-06-21] MEDS ORDERED: HYDROmorphone HCL 2 MG/ML VL/or syr IV ONE ×2 (03:30→08:45)
[2022-06-21] MEDS ORDERED: ONDANSETRON HCL 4 MG/2 ML VIAL IV ONE (03:30)
[2022-06-21] MEDS ORDERED: SODIUM CHLORIDE 0.9% 1,000 ML IV ONE (03:30)
[2022-06-21 03:45] LABS: Basophils # (auto) 0 10 ^3/uL (0-0.2); Basophils % (auto) 0.6 % (0.0-2.0); Eosinophils # (auto) 0.1 10 ^3/uL (0-0.8); Eosinophils % (auto) 1.5 % (0.0-7.0); Hematocrit 39.7 % (41.0-53.0); Hemoglobin 14.1 g/dL (13.5-17.5); Lymphocytes # (auto) 1.4 10 ^3/uL (0.4-5.4); Lymphocytes % (auto) 22.9 % (10.0-50.0); Mean Corpuscular Hemoglobin 29.6 pg (28.0-32.0); Mean Corpuscular Hgb Conc. 35.5 g/dL (32.0-36.0); Mean Corpuscular Volume 83.3 fL (80.0-100.0); Monocytes # (auto) 0.4 10 ^3/uL (0-1.3); Monocytes % (auto) 6.4 % (0.0-12.0); Neutrophils # (auto) 4.2 10 ^3/uL (1.6-8.6); Neutrophils % (auto) 68.6 % (37.0-80.0); Nucleated Red Blood Cells % 0.4 %; Red Blood Cells 4.76 10^6/uL (4.5-5.90); White Blood Cell 6.1 10^3/uL (4.4-10.8)
[2022-06-21 04:03] LABS: INR 0.99 (0.9-1.15); Partial Thromboplastin Time 24.2 sec (24.6-33.4)
[2022-06-21 04:08] LABS: Albumin 3.7 g/dL (3.4-5.0); BUN/Creatinine Ratio 20.7 (10.0-20.0); Calcium 9.4 mg/dL (8.5-10.1); Magnesium 2.3 mg/dL (1.6-2.6)
[2022-06-21 04:11] LABS: Bilirubin, Total 0.9 mg/dL (0.2-1.0); Total Protein 6.8 g/dL (6.4-8.2)
[2022-06-21] MEDS ORDERED: ALPR0.5T PO (08:09)
[2022-06-21] MEDS ORDERED: LIDOCAINE VISCOUS 2% 15ML UD PO ONE (08:45)
[2022-06-21] MEDS ORDERED: MAALOX PLUS or MAALOX 30 ML PO ONE (08:45)
[2022-06-21] MEDS ORDERED: DONNATAL 5ml ORAL Elix (BELLADONNA ALK-PHENOBARB) PO ONE (08:45)
[2022-06-21 09:50] VITALS: BP 141/90
== END 2022-06-21 10:00 | disposition home or self-care (01) ==
LOC: EDBD 02:53 → ER 02:53
DX: K31.84 Gastroparesis (principal); F41.9 Anxiety disorder, unspecified; E11.9 Type 2 diabetes mellitus without complications; I10 Essential (primary) hypertension
CPT/HCPCS: 36415; 71045; 71250; 74176; 80053; 83690; 83735; 84484; 85025; 85610; 85730; 93005; 96361; 96374; 96375; 96376; 99285; J1170; J2405; J7030

== ENCOUNTER 2022-06-27 07:02 | Emergency (ER) | payer MEDICAID ==
[~2022-06-27] VITALS: Ht 180.3 cm; Wt 94.2 kg
[~2022-06-27 07:02] MED LIST changes: +ALPR0.5T PO
[2022-06-27 09:55] VITALS: BP 144/81
[2022-06-27] MEDS ORDERED: LORazepam 2MG/ML-1ML VIAL IM ONE (10:30)
[2022-06-27] MEDS ORDERED: LORA1TAB23 PO ×4 (11:17→11:46)
== END 2022-06-27 11:48 | disposition home or self-care (01) ==
LOC: ER 07:02
DX: F41.9 Anxiety disorder, unspecified (principal); E11.9 Type 2 diabetes mellitus without complications; I10 Essential (primary) hypertension; F12.10 Cannabis abuse, uncomplicated; Z88.2 Allergy status to sulfonamides; Z88.6 Allergy status to analgesic agent
CPT/HCPCS: 96372; 99283; J2060

== ENCOUNTER 2022-07-03 03:30 | Emergency (ER) | payer MEDICAID ==
[~2022-07-03] VITALS: Ht 180.3 cm; Wt 88.6 kg
[~2022-07-03 03:30] MED LIST changes: +LORA1TAB23 PO
[2022-07-03 03:45] VITALS: BP 145/79
[2022-07-03 04:11] LABS: Urine Bacteria NONE SEEN /hpf (None Seen); Urine Blood Negative /uL (Negative); Urine Specific Gravity 1.015 (1.001-1.035); Urine WBC 1 /hpf (0 - 3)
[2022-07-03] MEDS ORDERED: LORazepam 0.5 MG TAB PO ONE (05:00)
[2022-07-03] MEDS ORDERED: HYDROcodone-ACET 5/325MG TAB PO ONE (05:45)
[2022-07-03 07:23] LABS: Basophils # (auto) 0.1 10 ^3/uL (0-0.2); Basophils % (auto) 0.9 % (0.0-2.0); Eosinophils # (auto) 0.1 10 ^3/uL (0-0.8); Eosinophils % (auto) 1.3 % (0.0-7.0); Hematocrit 39.3 % (41.0-53.0); Hemoglobin 13.8 g/dL (13.5-17.5); Lymphocytes # (auto) 1.4 10 ^3/uL (0.4-5.4); Lymphocytes % (auto) 17.8 % (10.0-50.0); Mean Corpuscular Hemoglobin 29.4 pg (28.0-32.0); Mean Corpuscular Volume 83.9 fL (80.0-100.0); Monocytes # (auto) 0.5 10 ^3/uL (0-1.3); Monocytes % (auto) 6.1 % (0.0-12.0); Neutrophils # (auto) 5.9 10 ^3/uL (1.6-8.6); Neutrophils % (auto) 73.9 % (37.0-80.0); Red Blood Cells 4.69 10^6/uL (4.5-5.90); Red Cell Distribution Width 14.5 % (11.8-14.3)
[2022-07-03 07:43] LABS: Albumin 3.9 g/dL (3.4-5.0); Calcium 9.2 mg/dL (8.5-10.1); Potassium 4.2 mmol/L (3.5-5.1)
[2022-07-03 07:47] LABS: BUN/Creatinine Ratio 23.1 (10.0-20.0); Bilirubin, Total 0.7 mg/dL (0.2-1.0); Total Protein 7.4 g/dL (6.4-8.2)
== END 2022-07-03 08:34 | disposition home or self-care (01) ==
LOC: ER 03:30 → EDBD 03:30 → ER 08:34
DX: R10.13 Epigastric pain (principal); F41.9 Anxiety disorder, unspecified; I10 Essential (primary) hypertension; E11.9 Type 2 diabetes mellitus without complications; Z79.899 Other long term (current) drug therapy; Z79.2 Long term (current) use of antibiotics; Z88.5 Allergy status to narcotic agent; Z88.2 Allergy status to sulfonamides; Z88.8 Allergy status to other drugs, medicaments and biological substances
CPT/HCPCS: 36415; 80053; 81001; 83690; 85025

== ENCOUNTER 2022-07-29 12:10 | Emergency (ER) | payer MEDICAID ==
[~2022-07-29] VITALS: Ht 188 cm; Wt 100.0 kg
[2022-07-29] MEDS ORDERED: LORazepam 2MG/ML-1ML VIAL ONE (12:15)
[2022-07-29] MEDS ORDERED: diphenhdrAMINE HCL 50 MG/1 ML VL IM ONE (12:30)
[2022-07-29] MEDS ORDERED: LORazepam 2MG/ML-1ML VIAL IM ONE ×2 (12:30→13:00)
[2022-07-29 13:44] LABS: Alcohol, Urine < 3.0 mg/dL (0-10); Amphetamine Screen, Urine NEGATIVE (NEGATIVE); Barbiturate Scree,Urine NEGATIVE (NEGATIVE); Benzodiazephine Screen, Urine NEGATIVE (NEGATIVE); Cannabinoid Screen, Urine POSITIVE (NEGATIVE); Cocaine Screen, Urine NEGATIVE (NEGATIVE); Opiate Scree,Urine NEGATIVE (NEGATIVE); Phencyclidine Screen, Urine NEGATIVE (NEGATIVE)
[2022-07-29] MEDS ORDERED: amLODIPine BESYLATE 5 MG TAB PO ONE (14:00)
[2022-07-29] MEDS ORDERED: LISINOPRIL 20 MG TAB PO ONE (14:00)
[2022-07-29 14:01] LABS: Basophils # (auto) 0 10 ^3/uL (0-0.2); Basophils % (auto) 0.4 % (0.0-2.0); Eosinophils # (auto) 0.1 10 ^3/uL (0-0.8); Eosinophils % (auto) 1.2 % (0.0-7.0); Hematocrit 43.1 % (41.0-53.0); Hemoglobin 14.8 g/dL (13.5-17.5); Lymphocytes # (auto) 1.6 10 ^3/uL (0.4-5.4); Lymphocytes % (auto) 20.2 % (10.0-50.0); Mean Corpuscular Hemoglobin 30.4 pg (28.0-32.0); Mean Corpuscular Hgb Conc. 34.3 g/dL (32.0-36.0); Mean Corpuscular Volume 88.6 fL (80.0-100.0); Monocytes # (auto) 0.5 10 ^3/uL (0-1.3); Monocytes % (auto) 5.9 % (0.0-12.0); Neutrophils # (auto) 5.8 10 ^3/uL (1.6-8.6); Neutrophils % (auto) 72.3 % (37.0-80.0); Nucleated Red Blood Cells % 0.1 %; Red Blood Cells 4.87 10^6/uL (4.5-5.90); Red Cell Distribution Width 13.6 % (11.8-14.3)
[2022-07-29 14:21] LABS: Albumin 4.3 g/dL (3.4-5.0); Anion Gap 7 (5-15); Blood Alcohol < 3.0 mg/dL (0-5); Blood Urea Nitrogen 23 mg/dL (7-18); Calcium 8.9 mg/dL (8.5-10.1); Carbon Dioxide 24 mmol/L (21-32); Chloride 111 mmol/L (98-107); Glucose 113 mg/dL (74-106); Potassium 4.2 mmol/L (3.5-5.1); Sodium 142 mmol/L (136-145)
[2022-07-29 14:25] LABS: Alanine Aminotransferase 26 U/L (16-61); Alkaline Phosphatase 77 U/L (45-117); Aspartate Aminotransferase 16 U/L (15-37); BUN/Creatinine Ratio 19.8 (10.0-20.0); Bilirubin, Total 0.4 mg/dL (0.2-1.0); GFR African American 85 mL/min; GFR Non-African American 70 mL/min; Total Protein 7.4 g/dL (6.4-8.2)
[2022-07-29] MEDS ORDERED: HYDR-3682 PO ×3 (14:28→15:20)
[2022-07-29 15:33] VITALS: BP 152/92
== END 2022-07-29 14:24 | disposition home or self-care (01) ==
LOC: EDBD 12:10 → ER 12:10
DX: F41.0 Panic disorder [episodic paroxysmal anxiety] (principal); F12.10 Cannabis abuse, uncomplicated
CPT/HCPCS: 36415; 80053; 80307; 80320; 85025; 96372; 99284; J1200; J2060

== ENCOUNTER 2022-08-01 13:20 | Emergency (ER) | payer MEDICAID ==
[~2022-08-01] VITALS: Ht 172.7 cm; Wt 81.8 kg
[~2022-08-01 13:20] MED LIST changes: +HYDR-3682 PO
[2022-08-01 13:57] LABS: Basophils # (auto) 0 10 ^3/uL (0-0.2); Basophils % (auto) 0.7 % (0.0-2.0); Eosinophils # (auto) 0 10 ^3/uL (0-0.8); Eosinophils % (auto) 0.5 % (0.0-7.0); Hematocrit 39.2 % (41.0-53.0); Hemoglobin 13.7 g/dL (13.5-17.5); Lymphocytes # (auto) 0.8 10 ^3/uL (0.4-5.4); Lymphocytes % (auto) 13.6 % (10.0-50.0); Mean Corpuscular Hemoglobin 30.1 pg (28.0-32.0); Mean Corpuscular Hgb Conc. 34.9 g/dL (32.0-36.0); Mean Corpuscular Volume 86.3 fL (80.0-100.0); Monocytes # (auto) 0.4 10 ^3/uL (0-1.3); Monocytes % (auto) 6.7 % (0.0-12.0); Neutrophils # (auto) 4.8 10 ^3/uL (1.6-8.6); Neutrophils % (auto) 78.5 % (37.0-80.0); Nucleated Red Blood Cells % 0.1 %; Red Blood Cells 4.55 10^6/uL (4.5-5.90); Red Cell Distribution Width 13.2 % (11.8-14.3); White Blood Cell 6.2 10^3/uL (4.4-10.8)
[2022-08-01] MEDS ORDERED: PROCHLORPERAZINE EDISYLATE 5 MG/ML 2ML VIAL IM ONE (14:15)
[2022-08-01] MEDS ORDERED: ERYTHROMYCIN LACTOBIONATE 250 MG in SODIUM CHL 0.9% 100 ML IV ONE (14:15)
[2022-08-01] MEDS ORDERED: LORazepam 2MG/ML-1ML VIAL ONE (14:15)
[2022-08-01] MEDS ORDERED: LACTATED RINGER'S 1,000 ML IV ONE (14:15)
[2022-08-01] MEDS ORDERED: LORazepam 2MG/ML-1ML VIAL IV ONE ×2 (14:15→18:30)
[2022-08-01 14:21] LABS: BUN/Creatinine Ratio 21.1 (10.0-20.0); Calcium 9.4 mg/dL (8.5-10.1); Potassium 4.3 mmol/L (3.5-5.1)
[2022-08-01 14:24] LABS: Bilirubin, Total 0.7 mg/dL (0.2-1.0); Total Protein 7.7 g/dL (6.4-8.2)
[2022-08-01] MEDS ORDERED: HYDROmorphone HCL 2 MG/ML VL/or syr IV ONE ×2 (15:00→16:45)
[2022-08-01] MEDS ORDERED: IOHEXOL 300 MG/ML 100ML BOTTLE IJ ONE (16:44)
[2022-08-01] MEDS ORDERED: LACTULOSE 20Gm/30ML SOLN PO ONE (17:45)
[2022-08-01] MEDS ORDERED: SENNA 8.6 MG TAB PO ONE (17:45)
[2022-08-01] MEDS ORDERED: FLEET ENEMA(ADULT) 135 ML PR ONE (17:45)
[2022-08-01] MEDS ORDERED: DOCUSATE SOD 100 MG CAP PO ONE (17:45)
[2022-08-01] MEDS ORDERED: MILK OF MAGNESIA 30ML SUSP PO ONE (17:45)
[2022-08-01] MEDS ORDERED: POLYETHYLENE GLYCOL 17 GM PWDR PO ONE (17:45)
[2022-08-01] MEDS ORDERED: cloNIDine HCL 0.1 MG TAB PO ONE (18:30)
[2022-08-01 19:31] VITALS: BP 142/82
== END 2022-08-01 19:20 | disposition left against medical advice (07) ==
LOC: EDBD 13:20 → ER 13:20
DX: K31.84 Gastroparesis (principal); K59.01 Slow transit constipation; I10 Essential (primary) hypertension; E78.5 Hyperlipidemia, unspecified; E11.9 Type 2 diabetes mellitus without complications; Z79.899 Other long term (current) drug therapy; Z79.2 Long term (current) use of antibiotics; Z88.2 Allergy status to sulfonamides; Z88.5 Allergy status to narcotic agent; Z88.8 Allergy status to other drugs, medicaments and biological substances
CPT/HCPCS: 36415; 74177; 80053; 83690; 85025; 96361; 96365; 96372; 96375; 96376; 99285; J0780; J1170; J1364; J2060; J7120; Q9967

== ENCOUNTER 2022-08-21 16:36 | Emergency (ER) | payer MEDICAID ==
[~2022-08-21] VITALS: Ht 180.3 cm; Wt 91.2 kg
[~2022-08-21 16:36] MED LIST changes: -AMLO-496 PO; +AMLO1TAB23 PO; +GABA-1251 PO; -GABA400C11 PO; -LISI20TA28 PO; +LISI20TA56 PO; +LORA-1123 PO; -LORA1TAB23 PO; +METF-1145 PO; -METF-916 PO
[2022-08-21] MEDS ORDERED: LORazepam 2MG/ML-1ML VIAL IM ONE (19:00)
[2022-08-21] MEDS ORDERED: HYDROcodone-ACET 10/325MG TAB PO ONE (19:00)
[2022-08-21] MEDS ORDERED: diphenhdrAMINE HCL 50 MG/1 ML VL IV ONE (19:45)
[2022-08-21] MEDS: METOCLOPRAMIDE HCL 5MG/ml INJ 2ml VIAL IV ONE ×2 (19:45→20:24)
[2022-08-21 20:20] LABS: Basophils # (auto) 0 10 ^3/uL (0-0.2); Basophils % (auto) 0.3 % (0.0-2.0); Eosinophils # (auto) 0 10 ^3/uL (0-0.8); Eosinophils % (auto) 0.1 % (0.0-7.0); Hematocrit 37.4 % (41.0-53.0); Hemoglobin 13.1 g/dL (13.5-17.5); Lymphocytes # (auto) 0.7 10 ^3/uL (0.4-5.4); Lymphocytes % (auto) 8.6 % (10.0-50.0); Mean Corpuscular Hemoglobin 30.7 pg (28.0-32.0); Mean Corpuscular Hgb Conc. 34.9 g/dL (32.0-36.0); Monocytes # (auto) 0.3 10 ^3/uL (0-1.3); Monocytes % (auto) 3.3 % (0.0-12.0); Neutrophils # (auto) 7.2 10 ^3/uL (1.6-8.6); Neutrophils % (auto) 87.7 % (37.0-80.0); Nucleated Red Blood Cells % 0.2 %; Red Blood Cells 4.25 10^6/uL (4.5-5.90); Red Cell Distribution Width 13.2 % (11.8-14.3); White Blood Cell 8.3 10^3/uL (4.4-10.8)
[2022-08-21 20:49] LABS: Calcium 8.6 mg/dL (8.5-10.1)
[2022-08-21 20:54] LABS: BUN/Creatinine Ratio 23.5 (10.0-20.0); Bilirubin, Total 0.4 mg/dL (0.2-1.0); Total Protein 6.8 g/dL (6.4-8.2)
[2022-08-21] MEDS ORDERED: LORazepam 2MG/ML-1ML VIAL IV ONE (21:00)
[2022-08-21 21:26] LABS: Urine Bacteria NONE SEEN /hpf (None Seen); Urine Blood TRACE /uL (Negative); Urine Hyaline Cast FEW /lpf (0 - 2); Urine WBC 1 /hpf (0 - 3)
[2022-08-21] MEDS ORDERED: MAALOX PLUS or MAALOX 30 ML PO ONE (21:45)
[2022-08-21] MEDS ORDERED: PANTOPRAZOLE 40 MG/10 ML VIAL INJ IV ONE (21:45)
[2022-08-21] MEDS ORDERED: DONNATAL 5ml ORAL Elix (BELLADONNA ALK-PHENOBARB) PO ONE (21:45)
[2022-08-21] MEDS ORDERED: HYDROmorphone HCL 2 MG/ML VL/or syr IV ONE (21:45)
[2022-08-21] MEDS ORDERED: LIDOCAINE VISCOUS 2% 15ML UD PO ONE (21:45)
[2022-08-21 22:16] VITALS: BP 168/72
[2022-08-21] MEDS ORDERED: PHEN1ELX6 PO (23:03)
[2022-08-21] MEDS ORDERED: LORA-655 PO (23:03)
[2022-08-21] MEDS ORDERED: LORazepam 0.5 MG TAB PO ONE (23:15)
== END 2022-08-21 21:25 | disposition home or self-care (01) ==
LOC: ER 16:36
DX: E11.43 Type 2 diabetes mellitus with diabetic autonomic (poly)neuropathy (principal); K31.84 Gastroparesis; I10 Essential (primary) hypertension; E11.9 Type 2 diabetes mellitus without complications; Z79.899 Other long term (current) drug therapy; Z79.2 Long term (current) use of antibiotics; Z88.2 Allergy status to sulfonamides; Z88.5 Allergy status to narcotic agent; Z88.8 Allergy status to other drugs, medicaments and biological substances
CPT/HCPCS: 36415; 80053; 81001; 83690; 85025; 96374; 96375; 99285; C9113; J1170; J1200; J2765

== ENCOUNTER 2022-12-03 18:12 | Emergency (ER) | payer MEDICAID ==
[~2022-12-03] VITALS: Ht 157.5 cm; Wt 75.0 kg
[~2022-12-03 18:12] MED LIST changes: +LORA-655 PO; +PHEN1ELX6 PO
[2022-12-03] MEDS ORDERED: LORazepam 2MG/ML-1ML VIAL IV ONE ×2 (18:45→23:30)
[2022-12-03] MEDS ORDERED: LABETALOL HCL 5 MG/ML 4ML SYRINGE IV ONE (18:45)
[2022-12-03] MEDS ORDERED: ONDANSETRON HCL 4 MG/2 ML VIAL IV ONE (18:45)
[2022-12-03] MEDS ORDERED: HYDROmorphone HCL 2 MG/ML VL/or syr IV ONE (18:45)
[2022-12-03] MEDS ORDERED: diphenhdrAMINE HCL 50 MG/1 ML VL IV ONE (19:00)
[2022-12-03] MEDS ORDERED: DONNATAL 5ml ORAL Elix (BELLADONNA ALK-PHENOBARB) PO ONE (19:00)
[2022-12-03] MEDS ORDERED: LIDOCAINE VISCOUS 2% 15ML UD MT ONE (19:00)
[2022-12-03] MEDS ORDERED: MAALOX PLUS or MAALOX 30 ML PO ONE (19:00)
[2022-12-03] MEDS ORDERED: PANTOPRAZOLE 40 MG/10 ML VIAL INJ IV ONE (19:00)
[2022-12-03] MEDS ORDERED: SODIUM CHLORIDE 0.9% 1,000 ML IVB ONE (19:00)
[2022-12-03 19:23] LABS: Basophils # (auto) 0.1 10 ^3/uL (0-0.2); Basophils % (auto) 0.7 % (0.0-2.0); Eosinophils # (auto) 0 10 ^3/uL (0-0.8); Eosinophils % (auto) 0.4 % (0.0-7.0); Hematocrit 42.8 % (41.0-53.0); Hemoglobin 14.6 g/dL (13.5-17.5); Lymphocytes # (auto) 1.7 10 ^3/uL (0.4-5.4); Lymphocytes % (auto) 23.1 % (10.0-50.0); Mean Corpuscular Hemoglobin 30.1 pg (28.0-32.0); Mean Corpuscular Volume 88.4 fL (80.0-100.0); Monocytes # (auto) 0.5 10 ^3/uL (0-1.3); Monocytes % (auto) 6.6 % (0.0-12.0); Neutrophils % (auto) 69.2 % (37.0-80.0); Red Blood Cells 4.84 10^6/uL (4.5-5.90); Red Cell Distribution Width 13.2 % (11.8-14.3); White Blood Cell 7.3 10^3/uL (4.4-10.8)
[2022-12-03 19:43] LABS: Alanine Aminotransferase 17 U/L (7-40); Albumin 5.2 g/dL (3.2-4.8); Alkaline Phosphatase 65 U/L (46-116); Anion Gap 14.3 (5-15); Aspartate Aminotransferase 16 U/L (13-40); BUN/Creatinine Ratio 13.8 (10.0-20.0); Bilirubin, Total 1.1 mg/dL (0.2-1.0); Blood Urea Nitrogen 20 mg/dL (9-23); Calcium 10.5 mg/dL (8.5-10.1); Carbon Dioxide 19.7 mmol/L (20-30); Chloride 109 mmol/L (98-107); Glucose 135 mg/dL (74-106); INR 1.01 (0.9-1.15); Lipase 42 U/L (12-53); Partial Thromboplastin Time 24.3 SEC (24.5-34.5); Potassium 4.2 mmol/L (3.5-5.1); Prothrombin Time 10.6 sec (9.3-11.8); Sodium 143 mmol/L (136-145); Total Protein 8.2 g/dL (5.7-8.2)
[2022-12-03 21:20] VITALS: PULSE 85; RESP 20; TEMP 98; O2SAT 100
[2022-12-03 23:00] VITALS: BP 174/94; PULSE 85; RESP 15
[2022-12-03] MEDS ORDERED: SODIUM CHLORIDE 0.9% 1,000 ML IV ONE ×2 (23:30)
== END 2022-12-04 00:30 | disposition home or self-care (01) ==
LOC: EDBD 18:12 → ER 18:12
DX: R10.84 Generalized abdominal pain (principal); F41.9 Anxiety disorder, unspecified; E11.9 Type 2 diabetes mellitus without complications; Z79.2 Long term (current) use of antibiotics; Z79.899 Other long term (current) drug therapy; Z88.2 Allergy status to sulfonamides; Z88.5 Allergy status to narcotic agent; Z88.8 Allergy status to other drugs, medicaments and biological substances
CPT/HCPCS: 36415; 80053; 82962; 83690; 83735; 84484; 85025; 85610; 85730; 96361; 96374; 96375; 96376; 99284; C9113; J1170; J1200; J2060; J2405; J3490; J7030

== ENCOUNTER 2022-12-13 05:50 | Inpatient (IN) | payer MEDICAID ==
[~2022-12-13] VITALS: Ht 180.3 cm; Wt 98.0 kg
[2022-12-13] MEDS ORDERED: amLODIPine BESYLATE 5 MG TAB PO ONE (06:30)
[2022-12-13] MEDS ORDERED: LORazepam 0.5 MG TAB PO ONE ×2 (06:30→11:30)
[2022-12-13 07:32] LABS: Basophils # (auto) 0 10 ^3/uL (0-0.2); Basophils % (auto) 0.2 % (0.0-2.0); Eosinophils # (auto) 0.1 10 ^3/uL (0-0.8); Eosinophils % (auto) 1.2 % (0.0-7.0); Hematocrit 40.3 % (41.0-53.0); Hemoglobin 13.7 g/dL (13.5-17.5); Lymphocytes # (auto) 1.2 10 ^3/uL (0.4-5.4); Lymphocytes % (auto) 13.5 % (10.0-50.0); Mean Corpuscular Hemoglobin 30.6 pg (28.0-32.0); Mean Corpuscular Volume 90.1 fL (80.0-100.0); Monocytes # (auto) 0.5 10 ^3/uL (0-1.3); Monocytes % (auto) 5.7 % (0.0-12.0); Neutrophils # (auto) 7.3 10 ^3/uL (1.6-8.6); Neutrophils % (auto) 79.4 % (37.0-80.0); Red Blood Cells 4.47 10^6/uL (4.5-5.90); Red Cell Distribution Width 12.9 % (11.8-14.3); White Blood Cell 9.2 10^3/uL (4.4-10.8)
[2022-12-13 07:52] LABS: Alanine Aminotransferase 19 U/L (7-40); Albumin 5.1 g/dL (3.2-4.8); Alkaline Phosphatase 73 U/L (46-116); Anion Gap 7 (5-15); Aspartate Aminotransferase 10 U/L (13-40); BUN/Creatinine Ratio 24.8 (10.0-20.0); Blood Urea Nitrogen 28 mg/dL (9-23); Calcium 9.5 mg/dL (8.7-10.4); Carbon Dioxide 23 mmol/L (20-30); Chloride 111 mmol/L (98-107); Glucose 141 mg/dL (74-106); Potassium 4.6 mmol/L (3.5-5.1); Sodium 141 mmol/L (136-145)
[2022-12-13 07:53] LABS: Bilirubin, Total 0.3 mg/dL (0.2-1.0); Total Protein 6.9 g/dL (5.7-8.2)
[2022-12-13 08:06] LABS: Urine Bacteria NONE SEEN /hpf (None Seen); Urine Blood 1+ /uL (Negative); Urine Clarity Clear (Clear); Urine Color Yellow (Yellow); Urine Protein, UAD 3+ (Negative); Urine Specific Gravity 1.024 (1.001-1.035); Urine Urobilinogen Normal (Negative); Urine WBC <1 /hpf (0 - 3)
[2022-12-13] MEDS ORDERED: SODIUM CHLORIDE 0.9% 1,000 ML IV ONE (11:45)
[2022-12-13 12:00] VITALS: PULSE 89; RESP 20; O2SAT 98
[2022-12-13] MEDS ORDERED: MAALOX PLUS or MAALOX 30 ML PO ONE (12:45)
[2022-12-13] MEDS ORDERED: LIDOCAINE VISCOUS 2% 15ML UD PO ONE (12:45)
[2022-12-13] MEDS ORDERED: ONDANSETRON HCL 4 MG/2 ML VIAL IV ONE (12:45)
[2022-12-13] MEDS ORDERED: HYDROmorphone HCL 2 MG/ML VL/or syr IV ONE (12:45)
[2022-12-13] MEDS ORDERED: DONNATAL 5ml ORAL Elix (BELLADONNA ALK-PHENOBARB) PO ONE (12:45)
[2022-12-13] MEDS ORDERED: PANTOPRAZOLE 40 MG/10 ML VIAL INJ IV ONE ×2 (13:03→13:45)
[2022-12-13] MEDS ORDERED: MORPHINE SULFATE INJ 2 MG/ml SYRG IV PRN (14:30)
[2022-12-13] MEDS ORDERED: NITROGLYCERIN 0.4 MG SL TAB SL PRN (14:30)
[2022-12-13] MEDS ORDERED: hydrALAZINE HCL 20 MG/ML VL IV PRN (16:30)
[2022-12-13] MEDS ORDERED: LISINOPRIL 20 MG TAB PO ONE (16:30)
[2022-12-13] MEDS: LORazepam 0.5 MG TAB PO PRN ×2 (16:37→16:44)
[2022-12-13] MEDS: hydrOXYzine 25 MG TAB or CAP PO PRN (17:23)
[2022-12-13 18:31] VITALS: RESP 20; O2SAT 98
[2022-12-13 21:07] LABS: INR 1.04 (0.9-1.15); Partial Thromboplastin Time 24.8 SEC (24.5-34.5); Prothrombin Time 10.9 sec (9.3-11.8)
[2022-12-13 22:36] LABS: Amphetamine Screen, Urine Neg (NEGATIVE); Barbiturate Scree,Urine Neg (NEGATIVE); Benzodiazephine Screen, Urine Neg (NEGATIVE); Cocaine Screen, Urine Neg (NEGATIVE); Opiate Scree,Urine Neg (NEGATIVE); Phencyclidine Screen, Urine Neg (NEGATIVE)
[2022-12-13 22:37] LABS: Cannabinoid Screen, Urine Pos (NEGATIVE)
[2022-12-13] MEDS: ALPRAZolam 0.5 MG TAB PO SCH (22:41)
[2022-12-13 23:21] LABS: Amphetamine Screen, Urine Neg (NEGATIVE); Barbiturate Scree,Urine Neg (NEGATIVE); Benzodiazephine Screen, Urine Neg (NEGATIVE); Cannabinoid Screen, Urine Pos (NEGATIVE); Cocaine Screen, Urine Neg (NEGATIVE); Opiate Scree,Urine Neg (NEGATIVE); Phencyclidine Screen, Urine Neg (NEGATIVE)
[2022-12-14] VITALS (9 sets, daily range): BP systolic 121–159; BP diastolic 69–97; PULSE 60–102; RESP 16–20; TEMP 97.5–98.8; O2SAT 96–100
[2022-12-14] MEDS: hydrOXYzine 25 MG TAB or CAP PO PRN (05:29)
[2022-12-14] MEDS: HYDROcodone-ACET 5/325MG TAB PO PRN ×3 (05:29→17:53)
[2022-12-14] MEDS: ALPRAZolam 0.5 MG TAB PO SCH (10:10)
[2022-12-14] MEDS: amLODIPine BESYLATE 5 MG TAB PO SCH (10:11)
[2022-12-14] MEDS: LISINOPRIL 20 MG TAB PO SCH (10:12)
[2022-12-14] MEDS: LORazepam 0.5 MG TAB PO PRN ×3 (11:10→20:29)
[2022-12-14 13:16] LABS: Basophils # (auto) 0 10 ^3/uL (0-0.2); Basophils % (auto) 0.7 % (0.0-2.0); Eosinophils # (auto) 0.1 10 ^3/uL (0-0.8); Eosinophils % (auto) 1.4 % (0.0-7.0); Hematocrit 39.1 % (41.0-53.0); Hemoglobin 13.3 g/dL (13.5-17.5); Lymphocytes # (auto) 1.6 10 ^3/uL (0.4-5.4); Lymphocytes % (auto) 30.2 % (10.0-50.0); Mean Corpuscular Hemoglobin 30.2 pg (28.0-32.0); Mean Corpuscular Hgb Conc. 33.9 g/dL (32.0-36.0); Monocytes # (auto) 0.4 10 ^3/uL (0-1.3); Monocytes % (auto) 7.2 % (0.0-12.0); Neutrophils # (auto) 3.3 10 ^3/uL (1.6-8.6); Neutrophils % (auto) 60.5 % (37.0-80.0); Nucleated Red Blood Cells % 0.2 %; Red Cell Distribution Width 13.1 % (11.8-14.3); White Blood Cell 5.4 10^3/uL (4.4-10.8)
[2022-12-14 13:41] LABS: Anion Gap 8 (5-15); Calcium 9.7 mg/dL (8.7-10.4); Carbon Dioxide 24 mmol/L (20-30); Chloride 110 mmol/L (98-107); Potassium 4.2 mmol/L (3.5-5.1); Sodium 142 mmol/L (136-145)
[2022-12-14 13:43] LABS: BUN/Creatinine Ratio 21.1 (10.0-20.0); Blood Urea Nitrogen 20 mg/dL (9-23); Glucose 94 mg/dL (74-106)
[2022-12-14 13:44] LABS: Magnesium 1.8 mg/dL (1.6-2.6)
[2022-12-14] MEDS ORDERED: clonazePAM 0.5 MG TAB PO ONE (17:15)
[2022-12-14] MEDS ORDERED: hydrOXYzine 25 MG TAB or CAP PO PRN (17:30)
[2022-12-15] VITALS (7 sets, daily range): BP systolic 120–161; BP diastolic 68–89; PULSE 63–81; RESP 18–19; TEMP 97.4–98.4; O2SAT 94–100
[2022-12-15] MEDS: HYDROcodone-ACET 5/325MG TAB PO PRN ×3 (02:53→16:24)
[2022-12-15] MEDS: LORazepam 0.5 MG TAB PO PRN ×3 (05:43→22:04)
[2022-12-15] MEDS: PARoxetine 20 MG TAB PO SCH (05:43)
[2022-12-15] MEDS: LISINOPRIL 20 MG TAB PO SCH (10:09)
[2022-12-15] MEDS: amLODIPine BESYLATE 5 MG TAB PO SCH (10:10)
[2022-12-15] MEDS ORDERED: POLYETHYLENE GLYCOL 17 GM PWDR PO PRN (12:15)
[2022-12-15] MEDS ORDERED: DOCUSATE SOD 100 MG CAP PO ONE (12:15)
[2022-12-15] MEDS ORDERED: LACTULOSE 20Gm/30ML SOLN PO ONE (12:15)
[2022-12-15 15:10] LABS: Basophils # (auto) 0 10 ^3/uL (0-0.2); Basophils % (auto) 0.6 % (0.0-2.0); Eosinophils # (auto) 0.1 10 ^3/uL (0-0.8); Eosinophils % (auto) 2.3 % (0.0-7.0); Hematocrit 35.6 % (41.0-53.0); Hemoglobin 12.6 g/dL (13.5-17.5); Lymphocytes # (auto) 1.5 10 ^3/uL (0.4-5.4); Lymphocytes % (auto) 31.4 % (10.0-50.0); Mean Corpuscular Hemoglobin 30.8 pg (28.0-32.0); Mean Corpuscular Hgb Conc. 35.3 g/dL (32.0-36.0); Mean Corpuscular Volume 87.3 fL (80.0-100.0); Monocytes # (auto) 0.4 10 ^3/uL (0-1.3); Monocytes % (auto) 7.2 % (0.0-12.0); Neutrophils # (auto) 2.9 10 ^3/uL (1.6-8.6); Neutrophils % (auto) 58.5 % (37.0-80.0); Nucleated Red Blood Cells % 0.1 %; Red Blood Cells 4.07 10^6/uL (4.5-5.90); Red Cell Distribution Width 12.8 % (11.8-14.3); White Blood Cell 4.9 10^3/uL (4.4-10.8)
[2022-12-15 15:18] LABS: Chloride 111 mmol/L (98-107); Potassium 4.2 mmol/L (3.5-5.1); Sodium 142 mmol/L (136-145)
[2022-12-15 15:19] LABS: Anion Gap 5 (5-15); Calcium 9.4 mg/dL (8.7-10.4); Carbon Dioxide 26 mmol/L (20-30)
[2022-12-15 15:24] LABS: BUN/Creatinine Ratio 17.6 (10.0-20.0); Blood Urea Nitrogen 18 mg/dL (9-23); Glucose 103 mg/dL (74-106)
[2022-12-15 15:25] LABS: Magnesium 1.9 mg/dL (1.6-2.6)
[2022-12-15] MEDS: DOCUSATE SOD 100 MG CAP PO SCH (21:16)
[2022-12-16] VITALS (7 sets, daily range): BP systolic 130–169; BP diastolic 72–96; PULSE 64–92; RESP 17–22; TEMP 95.5–98.5; O2SAT 94–100
[2022-12-16] MEDS: HYDROcodone-ACET 5/325MG TAB PO PRN ×3 (03:56→20:26)
[2022-12-16] MEDS: PARoxetine 20 MG TAB PO SCH (07:04)
[2022-12-16] MEDS: LORazepam 0.5 MG TAB PO PRN ×4 (07:39→23:43)
[2022-12-16] MEDS: LACTULOSE 20Gm/30ML SOLN PO SCH (10:28)
[2022-12-16] MEDS: DOCUSATE SOD 100 MG CAP PO SCH ×2 (10:28→22:15)
[2022-12-16] MEDS: amLODIPine BESYLATE 5 MG TAB PO SCH (10:29)
[2022-12-16] MEDS: LISINOPRIL 20 MG TAB PO SCH (10:30)
[2022-12-17] VITALS (7 sets, daily range): BP systolic 130–164; BP diastolic 75–94; PULSE 67–85; RESP 16–18; TEMP 97.3–98.6; O2SAT 94–99
[2022-12-17] MEDS: HYDROcodone-ACET 5/325MG TAB PO PRN ×3 (03:32→17:49)
[2022-12-17] MEDS: LORazepam 0.5 MG TAB PO PRN ×4 (05:24→21:26)
[2022-12-17] MEDS: PARoxetine 20 MG TAB PO SCH (06:22)
[2022-12-17] MEDS: LACTULOSE 20Gm/30ML SOLN PO SCH (09:36)
[2022-12-17] MEDS: amLODIPine BESYLATE 5 MG TAB PO SCH (09:37)
[2022-12-17] MEDS: DOCUSATE SOD 100 MG CAP PO SCH ×2 (09:38→21:25)
[2022-12-17] MEDS ORDERED: LISINOPRIL 20 MG TAB PO SCH (10:00)
[2022-12-17] MEDS: Glucerna Carbsteady SHAKE Vanilla 8oz PO SCH ×2 (17:50→21:33)
[2022-12-17] MEDS ORDERED: Ensure Enlive Vanilla 8oz Bottle PO SCH (18:00)
[2022-12-17 23:08] LABS: Basophils # (auto) 0 10 ^3/uL (0-0.2); Basophils % (auto) 0.5 % (0.0-2.0); Eosinophils # (auto) 0.1 10 ^3/uL (0-0.8); Eosinophils % (auto) 2.6 % (0.0-7.0); Hematocrit 37.1 % (41.0-53.0); Hemoglobin 12.9 g/dL (13.5-17.5); Lymphocytes # (auto) 1.7 10 ^3/uL (0.4-5.4); Lymphocytes % (auto) 30.6 % (10.0-50.0); Mean Corpuscular Hemoglobin 30.4 pg (28.0-32.0); Mean Corpuscular Hgb Conc. 34.7 g/dL (32.0-36.0); Mean Corpuscular Volume 87.4 fL (80.0-100.0); Monocytes # (auto) 0.6 10 ^3/uL (0-1.3); Neutrophils # (auto) 3.2 10 ^3/uL (1.6-8.6); Neutrophils % (auto) 56.3 % (37.0-80.0); Nucleated Red Blood Cells % 0.2 %; Red Blood Cells 4.25 10^6/uL (4.5-5.90); Red Cell Distribution Width 12.9 % (11.8-14.3); White Blood Cell 5.6 10^3/uL (4.4-10.8)
[2022-12-18 00:01] LABS: Chloride 107 mmol/L (98-107); Potassium 3.9 mmol/L (3.5-5.1); Sodium 138 mmol/L (136-145)
[2022-12-18 00:02] LABS: Anion Gap 5 (5-15); Calcium 9.4 mg/dL (8.7-10.4); Carbon Dioxide 26 mmol/L (20-30)
[2022-12-18 00:07] LABS: BUN/Creatinine Ratio 15.1 (10.0-20.0); Blood Urea Nitrogen 16 mg/dL (9-23); Glucose 111 mg/dL (74-106)
[2022-12-18 00:08] LABS: Magnesium 1.9 mg/dL (1.6-2.6)
[2022-12-18] MEDS: LORazepam 0.5 MG TAB PO PRN ×3 (02:54→12:23)
[2022-12-18 05:00] VITALS: BP 147/63; PULSE 59; RESP 17; TEMP 98; O2SAT 95
[2022-12-18] MEDS: HYDROcodone-ACET 5/325MG TAB PO PRN (05:39)
[2022-12-18] MEDS: PARoxetine 20 MG TAB PO SCH (06:18)
[2022-12-18] MEDS: Glucerna Carbsteady SHAKE Vanilla 8oz PO SCH ×2 (08:16→12:00)
[2022-12-18 09:00] VITALS: BP 138/83; PULSE 72; RESP 14; TEMP 97.8; O2SAT 96
[2022-12-18] MEDS ORDERED: LISINOPRIL 20 MG TAB PO SCH (10:00)
[2022-12-18] MEDS: LACTULOSE 20Gm/30ML SOLN PO SCH (10:00)
[2022-12-18] MEDS ORDERED: OXYCODONE W/ ACETAMINOPHEN 5/325MG TABLET PO PRN (11:00)
[2022-12-18] MEDS: OXYCODONE W/ ACETAMINOPHEN 5/325MG TABLET PO PRN ×2 (11:24→15:17)
[2022-12-18 13:00] VITALS: BP 129/71; PULSE 85; RESP 16; TEMP 98.2; O2SAT 97
[2022-12-18] MEDS: DOCUSATE SOD 100 MG CAP PO SCH (13:43)
[2022-12-18] MEDS: amLODIPine BESYLATE 5 MG TAB PO SCH (13:44)
[2022-12-18] MEDS ORDERED: PERCOT PO (15:27)
[2022-12-18] MEDS ORDERED: PAR20T PO (15:27)
[2022-12-18] MEDS ORDERED: LISI40TA16 PO (15:31)
[2022-12-18] MEDS ORDERED: AMLO1TAB23 PO (15:31)
[2022-12-18] MEDS ORDERED: LORA-1123 PO (15:31)
[2022-12-19] MEDS ORDERED: PERCOT PO (12:41)
[2022-12-19] MEDS ORDERED: LORA2TAB89 PO (12:41)
[2022-12-19] MEDS ORDERED: PAR20T PO (12:42)
== END 2022-12-18 16:00 | disposition home or self-care (01) | DRG 249 ==
LOC: ER 05:50 → OVERFLOW 14:28 → WEST WING 23:37
PROVIDERS: ADMIT Internal Medicine Geriatric Medicine; ATTEND Student in an Organized Health Care Education/Training Program
DX: K52.9 Noninfective gastroenteritis and colitis, unspecified (principal); F12.980 Cannabis use, unspecified with anxiety disorder; K59.00 Constipation, unspecified; I10 Essential (primary) hypertension; F41.0 Panic disorder [episodic paroxysmal anxiety]; Z87.11 Personal history of peptic ulcer disease; Z82.49 Family history of ischemic heart disease and other diseases of the circulatory system; Z83.3 Family history of diabetes mellitus; Z79.899 Other long term (current) drug therapy
CPT/HCPCS: 36415; 74176; 80048; 80053; 80307; 81001; 83735; 84484; 85025; 85610; 85730; 93005; 96361; 96374; 96375; C9113; G0378; J2405

== ENCOUNTER 2022-12-28 09:17 | Emergency (ER) | payer MEDICAID ==
[~2022-12-28] VITALS: Ht 177.8 cm; Wt 84.5 kg
[~2022-12-28 09:17] MED LIST changes: -ALPR0.5T PO; -CIPR-173 PO; -CITA10TA8 PO; -DICY20TA PO; -HYDR-3682 PO; -HYDR-4798 PO; -LACT10SO3 PO; -LISI20TA56 PO; +LISI40TA16 PO; +LORA-1121 PO; -LORA-655 PO; +LORA2TAB89 PO; -OXYC325T10 PO; -PANT40TA2 PO; +PAR20T PO; +PERCOT PO; -PHEN1ELX6 PO; -SULF10SO15 OP
[2022-12-28 10:00] VITALS: TEMP 98
[2022-12-28] MEDS ORDERED: amLODIPine BESYLATE 5 MG TAB PO ONE (10:00)
[2022-12-28] MEDS ORDERED: LORazepam 0.5 MG TAB PO ONE (10:15)
[2022-12-28 11:12] LABS: Basophils # (auto) 0 10 ^3/uL (0-0.2); Basophils % (auto) 0.1 % (0.0-2.0); Eosinophils # (auto) 0.1 10 ^3/uL (0-0.8); Hematocrit 42.7 % (41.0-53.0); Hemoglobin 14.7 g/dL (13.5-17.5); Lymphocytes # (auto) 0.6 10 ^3/uL (0.4-5.4); Lymphocytes % (auto) 9.6 % (10.0-50.0); Mean Corpuscular Hemoglobin 30.4 pg (28.0-32.0); Mean Corpuscular Hgb Conc. 34.4 g/dL (32.0-36.0); Mean Corpuscular Volume 88.2 fL (80.0-100.0); Monocytes # (auto) 0.4 10 ^3/uL (0-1.3); Monocytes % (auto) 6.5 % (0.0-12.0); Neutrophils # (auto) 5.1 10 ^3/uL (1.6-8.6); Neutrophils % (auto) 82.8 % (37.0-80.0); Nucleated Red Blood Cells % 0.2 %; Red Blood Cells 4.83 10^6/uL (4.5-5.90); Red Cell Distribution Width 12.8 % (11.8-14.3); White Blood Cell 6.2 10^3/uL (4.4-10.8)
[2022-12-28 11:46] LABS: Alanine Aminotransferase 15 U/L (7-40); Albumin 5.1 g/dL (3.2-4.8); Alkaline Phosphatase 73 U/L (46-116); Anion Gap 6 (5-15); Aspartate Aminotransferase 14 U/L (13-40); BUN/Creatinine Ratio 16.9 (10.0-20.0); Bilirubin, Total 0.5 mg/dL (0.2-1.0); Blood Urea Nitrogen 20 mg/dL (9-23); Calcium 9.9 mg/dL (8.7-10.4); Carbon Dioxide 24 mmol/L (20-30); Chloride 111 mmol/L (98-107); Glucose 132 mg/dL (74-106); Potassium 4.8 mmol/L (3.5-5.1); Sodium 141 mmol/L (136-145); Total Protein 7.6 g/dL (5.7-8.2)
[2022-12-28 11:49] LABS: Free T3 3.61 pg/mL (2.3-4.2); Free T4 (Free Thyroxine) 1.44 ng/dL (0.89-1.76)
[2022-12-28] MEDS ORDERED: HYDROmorphone HCL 2 MG/ML VL/or syr IM ONE (12:30)
[2022-12-28 13:11] VITALS: BP 152/76; PULSE 98; RESP 18; O2SAT 99
[2022-12-28 14:24] LABS: Amphetamine Screen, Urine Neg (NEGATIVE)
[2022-12-28 14:25] LABS: Barbiturate Scree,Urine Neg (NEGATIVE); Benzodiazephine Screen, Urine Neg (NEGATIVE); Cannabinoid Screen, Urine Pos (NEGATIVE); Cocaine Screen, Urine Neg (NEGATIVE); Opiate Scree,Urine Pos (NEGATIVE); Phencyclidine Screen, Urine Neg (NEGATIVE)
== END 2022-12-28 13:43 | disposition home or self-care (01) ==
LOC: ER 09:17
DX: R10.84 Generalized abdominal pain (principal); F41.9 Anxiety disorder, unspecified; G89.29 Other chronic pain; M54.50 Low back pain, unspecified; F11.20 Opioid dependence, uncomplicated; I10 Essential (primary) hypertension; E11.9 Type 2 diabetes mellitus without complications; Z79.899 Other long term (current) drug therapy; Z88.2 Allergy status to sulfonamides; Z88.5 Allergy status to narcotic agent; Z88.8 Allergy status to other drugs, medicaments and biological substances
CPT/HCPCS: 36415; 74022; 80053; 80307; 83690; 84439; 84443; 84481; 84484; 85025; 96372; 99285; J1170

== ENCOUNTER 2023-01-07 17:10 | Emergency (ER) | payer MEDICAID ==
[~2023-01-07] VITALS: Ht 180.3 cm; Wt 89.0 kg
[2023-01-07] MEDS ORDERED: PROCHLORPERAZINE EDISYLATE 5 MG/ML 2ML VIAL IM ONE (17:45)
[2023-01-07] MEDS ORDERED: cloNIDine HCL 0.1 MG TAB PO ONE (17:45)
[2023-01-07] MEDS ORDERED: LORazepam 2MG/ML-1ML VIAL IM ONE (17:45)
[2023-01-07] MEDS ORDERED: KETOROLAC TROMETH 60MG/2ML VIAL IM ONE (18:15)
[2023-01-07 18:32] LABS: Alanine Aminotransferase 13 U/L (7-40); Albumin 4.8 g/dL (3.2-4.8); Alkaline Phosphatase 66 U/L (46-116); Anion Gap 9 (5-15); Aspartate Aminotransferase 13 U/L (13-40); BUN/Creatinine Ratio 28.1 (10.0-20.0); Blood Urea Nitrogen 25 mg/dL (9-23); Calcium 9.5 mg/dL (8.7-10.4); Carbon Dioxide 22 mmol/L (20-30); Chloride 109 mmol/L (98-107); Glucose 118 mg/dL (74-106); Potassium 4.8 mmol/L (3.5-5.1); Sodium 140 mmol/L (136-145)
[2023-01-07 18:33] LABS: Basophils # (auto) 0 10 ^3/uL (0-0.2); Basophils % (auto) 0.3 % (0.0-2.0); Bilirubin, Total 0.3 mg/dL (0.2-1.0); Eosinophils # (auto) 0 10 ^3/uL (0-0.8); Eosinophils % (auto) 0.4 % (0.0-7.0); Hematocrit 38.3 % (41.0-53.0); Hemoglobin 13.1 g/dL (13.5-17.5); Lymphocytes # (auto) 1.4 10 ^3/uL (0.4-5.4); Mean Corpuscular Hemoglobin 29.8 pg (28.0-32.0); Mean Corpuscular Hgb Conc. 34.1 g/dL (32.0-36.0); Mean Corpuscular Volume 87.3 fL (80.0-100.0); Monocytes # (auto) 0.6 10 ^3/uL (0-1.3); Monocytes % (auto) 5.9 % (0.0-12.0); Neutrophils # (auto) 7.4 10 ^3/uL (1.6-8.6); Neutrophils % (auto) 78.4 % (37.0-80.0); Nucleated Red Blood Cells % 0.2 %; Red Blood Cells 4.39 10^6/uL (4.5-5.90); Red Cell Distribution Width 12.7 % (11.8-14.3); Total Protein 7.1 g/dL (5.7-8.2); White Blood Cell 9.5 10^3/uL (4.4-10.8)
[2023-01-07 18:44] VITALS: TEMP 96.7
[2023-01-07 19:19] LABS: Urine Bacteria NONE SEEN /hpf (None Seen); Urine Blood 1+ /uL (Negative); Urine Clarity Clear (Clear); Urine Color Colorless (Yellow); Urine Protein, UAD 2+ (Negative); Urine Specific Gravity 1.017 (1.001-1.035); Urine Urobilinogen Normal (Negative); Urine WBC 1 /hpf (0 - 3)
[2023-01-07] MEDS ORDERED: HYDROmorphone HCL 2 MG/ML VL/or syr IM ONE (19:30)
[2023-01-07 19:38] LABS: Amphetamine Screen, Urine Neg (NEGATIVE)
[2023-01-07 19:39] LABS: Barbiturate Scree,Urine Neg (NEGATIVE); Benzodiazephine Screen, Urine Neg (NEGATIVE); Cannabinoid Screen, Urine Pos (NEGATIVE); Cocaine Screen, Urine Neg (NEGATIVE); Opiate Scree,Urine Pos (NEGATIVE); Phencyclidine Screen, Urine Neg (NEGATIVE)
[2023-01-07] MEDS ORDERED: HYDROmorphone HCL 2 MG/ML VL/or syr IV ONE ×2 (20:00→20:15)
[2023-01-07] MEDS ORDERED: LORazepam 2MG/ML-1ML VIAL IV ONE (20:15)
[2023-01-07] MEDS ORDERED: PANTOPRAZOLE 40 MG/10 ML VIAL INJ IV ONE (20:15)
[2023-01-07] MEDS ORDERED: KETOROLAC TROMETH 30 MG/ML 1ML VIAL IV ONE (20:15)
[2023-01-07 20:43] VITALS: BP 136/78
[2023-01-07 20:58] VITALS: PULSE 123; RESP 25; O2SAT 97
== END 2023-01-07 21:19 | disposition home or self-care (01) ==
LOC: ER 17:10
DX: F11.10 Opioid abuse, uncomplicated (principal); G89.29 Other chronic pain; R10.84 Generalized abdominal pain; Z79.899 Other long term (current) drug therapy; Z88.2 Allergy status to sulfonamides; Z88.5 Allergy status to narcotic agent; Z88.8 Allergy status to other drugs, medicaments and biological substances
CPT/HCPCS: 36415; 80053; 80307; 81001; 85025; 96372; 96374; 96375; 99285; C9113; J0780; J1170; J2060; J1885

== ENCOUNTER 2023-01-11 06:29 | Emergency (ER) | payer MEDICAID ==
[~2023-01-11] VITALS: Ht 175.3 cm; Wt 72.0 kg
[2023-01-11 06:29] VITALS: BP 158/101; PULSE 111; RESP 16; O2SAT 98
[2023-01-11] MEDS ORDERED: PROCHLORPERAZINE EDISYLATE 5 MG/ML 2ML VIAL IV ONE (06:45)
[2023-01-11] MEDS ORDERED: SODIUM CHLORIDE 0.9% 1,000 ML IVB ONE (06:45)
[2023-01-11] MEDS ORDERED: PANTOPRAZOLE 40 MG/10 ML VIAL INJ IV ONE (06:45)
[2023-01-11 07:47] LABS: Basophils # (auto) 0.1 10 ^3/uL (0-0.2); Basophils % (auto) 0.4 % (0.0-2.0); Eosinophils # (auto) 0.4 10 ^3/uL (0-0.8); Eosinophils % (auto) 3.3 % (0.0-7.0); Hematocrit 41.6 % (41.0-53.0); Hemoglobin 14.2 g/dL (13.5-17.5); Lymphocytes # (auto) 3.3 10 ^3/uL (0.4-5.4); Lymphocytes % (auto) 24.7 % (10.0-50.0); Mean Corpuscular Hemoglobin 29.6 pg (28.0-32.0); Mean Corpuscular Hgb Conc. 34.2 g/dL (32.0-36.0); Mean Corpuscular Volume 86.8 fL (80.0-100.0); Monocytes # (auto) 0.6 10 ^3/uL (0-1.3); Monocytes % (auto) 4.5 % (0.0-12.0); Neutrophils # (auto) 8.9 10 ^3/uL (1.6-8.6); Neutrophils % (auto) 67.1 % (37.0-80.0); Nucleated Red Blood Cells % 0.2 %; Red Cell Distribution Width 12.5 % (11.8-14.3); White Blood Cell 13.2 10^3/uL (4.4-10.8)
[2023-01-11 08:10] LABS: Alanine Aminotransferase 20 U/L (7-40); Albumin 4.8 g/dL (3.2-4.8); Alkaline Phosphatase 80 U/L (46-116); Anion Gap 10 (5-15); Aspartate Aminotransferase 14 U/L (13-40); BUN/Creatinine Ratio 18.9 (10.0-20.0); Blood Urea Nitrogen 21 mg/dL (9-23); Carbon Dioxide 24 mmol/L (20-30); Chloride 107 mmol/L (98-107); Glucose 168 mg/dL (74-106); Potassium 4.3 mmol/L (3.5-5.1); Sodium 141 mmol/L (136-145)
[2023-01-11 08:11] LABS: Bilirubin, Total 0.3 mg/dL (0.2-1.0); Total Protein 7.8 g/dL (5.7-8.2)
[2023-01-11 08:18] LABS: Calcium 9.8 mg/dL (8.5-10.1)
[2023-01-11] MEDS ORDERED: PANTOPRAZOLE 40 MG TAB PO ONE (08:30)
[2023-01-11] MEDS ORDERED: LORazepam 0.5 MG TAB PO ONE (08:30)
[2023-01-11 09:31] LABS: Lipase 59 U/L (12-53)
== END 2023-01-11 08:54 | disposition home or self-care (01) ==
LOC: ER 06:29 → EDBD 06:29 → ER 08:54
DX: R10.9 Unspecified abdominal pain (principal); R11.2 Nausea with vomiting, unspecified; F41.8 Other specified anxiety disorders; I10 Essential (primary) hypertension; E11.9 Type 2 diabetes mellitus without complications; Z79.899 Other long term (current) drug therapy; Z88.2 Allergy status to sulfonamides; Z88.5 Allergy status to narcotic agent; Z88.8 Allergy status to other drugs, medicaments and biological substances
CPT/HCPCS: 36415; 74176; 80053; 83690; 85025

== ENCOUNTER 2023-06-14 03:37 | Inpatient (IN) | payer MEDICAID ==
[~2023-06-14] VITALS: Ht 180.3 cm; Wt 81.0 kg
[2023-06-14 04:32] LABS: Urine Bacteria NONE SEEN /hpf (None Seen); Urine Blood Negative /uL (Negative); Urine Clarity Clear (Clear); Urine Color Yellow (Yellow); Urine Hyaline Cast FEW /lpf (0 - 2); Urine Protein, UAD 1+ (Negative); Urine Specific Gravity 1.019 (1.001-1.035); Urine Urobilinogen Normal (Negative); Urine WBC 3 /hpf (0 - 3); Urine pH 5.5 (5.0-8.0)
[2023-06-14 06:32] LABS: Basophils # (auto) 0 10 ^3/uL (0-0.2); Basophils % (auto) 0.3 % (0.0-2.0); Eosinophils # (auto) 0 10 ^3/uL (0-0.8); Eosinophils % (auto) 0.3 % (0.0-7.0); Hematocrit 39.9 % (41.0-53.0); Hemoglobin 13.7 g/dL (13.5-17.5); Lymphocytes # (auto) 1.1 10 ^3/uL (0.4-5.4); Lymphocytes % (auto) 15.1 % (10.0-50.0); Mean Corpuscular Hemoglobin 29.9 pg (28.0-32.0); Mean Corpuscular Hgb Conc. 34.3 g/dL (32.0-36.0); Monocytes # (auto) 0.5 10 ^3/uL (0-1.3); Monocytes % (auto) 7.3 % (0.0-12.0); Neutrophils # (auto) 5.8 10 ^3/uL (1.6-8.6); Red Blood Cells 4.59 10^6/uL (4.5-5.90); Red Cell Distribution Width 12.4 % (11.8-14.3); White Blood Cell 7.5 10^3/uL (4.4-10.8)
[2023-06-14 06:47] LABS: Alanine Aminotransferase 22 U/L (7-40); Albumin 4.8 g/dL (3.2-4.8); Alkaline Phosphatase 66 U/L (46-116); Anion Gap 8 (5-15); Aspartate Aminotransferase 24 U/L (13-40); BUN/Creatinine Ratio 17.1 (10.0-20.0); Blood Urea Nitrogen 33 mg/dL (9-23); Calcium 9.7 mg/dL (8.7-10.4); Carbon Dioxide 23 mmol/L (20-30); Chloride 103 mmol/L (98-107); Glucose 168 mg/dL (74-106); Lipase 47 U/L (12-53); Potassium 4.1 mmol/L (3.5-5.1); Sodium 134 mmol/L (136-145)
[2023-06-14 06:48] LABS: Total Protein 7.5 g/dL (5.7-8.2)
[2023-06-14 07:06] VITALS: PULSE 117; RESP 37; O2SAT 99
[2023-06-14 07:30] VITALS: PULSE 111; RESP 17; O2SAT 99
[2023-06-14] MEDS: ONDANSETRON HCL 4 MG/2 ML VIAL IV ONE (07:31)
[2023-06-14] MEDS: diphenhdrAMINE HCL 50 MG/1 ML VL ONE (07:46)
[2023-06-14] MEDS: diphenhdrAMINE HCL 50 MG/1 ML VL IV ONE (07:49)
[2023-06-14] MEDS: LORazepam 2MG/ML-1ML VIAL IV ONE (08:09)
[2023-06-14] MEDS: SODIUM CHLORIDE 0.9% 1,000 ML IV ONE ×2 (08:23)
[2023-06-14] MEDS: KETOROLAC TROMETH 30 MG/ML 1ML VIAL IV ONE (08:49)
[2023-06-14 09:00] VITALS: TEMP 98.2
[2023-06-14] MEDS ORDERED: SODIUM CHLORIDE 0.9% 1,000 ML IV SCH ×2 (09:45→10:00)
[2023-06-14] MEDS ORDERED: MORPHINE SULFATE INJ 2 MG/ml SYRG IV PRN ×2 (09:45→10:00)
[2023-06-14] MEDS ORDERED: ACETAMINOPHEN 325 MG TAB PO PRN ×2 (09:45→10:00)
[2023-06-14] MEDS ORDERED: HYDROcodone-ACET 5/325MG TAB PO PRN ×2 (09:45→10:00)
[2023-06-14] MEDS ORDERED: KETOROLAC TROMETH 30 MG/ML 1ML VIAL IV PRN (09:45)
[2023-06-14] MEDS ORDERED: DOCUSATE SOD 100 MG CAP PO PRN ×2 (09:45→10:00)
[2023-06-14] MEDS: LACTULOSE 20Gm/30ML SOLN PO ONE (09:45)
[2023-06-14] MEDS ORDERED: ONDANSETRON HCL 4 MG/2 ML VIAL IV PRN (09:45)
[2023-06-14] MEDS ORDERED: LACTULOSE 20Gm/30ML SOLN PO PRN (09:45)
[2023-06-14] MEDS ORDERED: NITROGLYCERIN 0.4 MG SL TAB SL PRN ×2 (09:45→10:00)
[2023-06-14 10:03] LABS: Amphetamine Screen, Urine Neg (NEGATIVE); Benzodiazephine Screen, Urine Neg (NEGATIVE)
[2023-06-14 10:04] LABS: Barbiturate Scree,Urine Neg (NEGATIVE); Cannabinoid Screen, Urine Pos (NEGATIVE); Cocaine Screen, Urine Neg (NEGATIVE); Opiate Scree,Urine Pos (NEGATIVE); Phencyclidine Screen, Urine Neg (NEGATIVE)
[2023-06-14] MEDS ORDERED: hydrALAZINE HCL 20 MG/ML VL IV PRN (10:15)
[2023-06-14] MEDS: FLEET ENEMA(ADULT) 135 ML PR ONE (10:30)
[2023-06-14 11:00] VITALS: BP 139/73; PULSE 100; RESP 14; O2SAT 95
[2023-06-14] MEDS ORDERED: DICYCLOMINE HCL 10 MG CAP PO ONE (11:45)
[2023-06-14] MEDS ORDERED: PANTOPRAZOLE 40 MG/10 ML VIAL INJ IV ONE (11:45)
[2023-06-14] MEDS ORDERED: OXYCODONE W/ ACETAMINOPHEN 5/325MG TABLET PO SCH (12:00)
[2023-06-14] MEDS ORDERED: DICYCLOMINE HCL 10 MG CAP PO SCH (12:00)
[2023-06-14] MEDS ORDERED: GABAPENTIN 400 MG CAP PO SCH (14:00)
[2023-06-14] MEDS ORDERED: HEPARIN SODIUM (PORCINE) 5000 UNITS/ML 1ML VIAL SC SCH (22:00)
[2023-06-15] MEDS ORDERED: PANTOPRAZOLE 40 MG/10 ML VIAL INJ IV SCH (10:00)
[2023-06-15] MEDS ORDERED: LISINOPRIL 20 MG TAB PO SCH (10:00)
[2023-06-15] MEDS ORDERED: amLODIPine BESYLATE 5 MG TAB PO SCH (10:00)
[2023-06-15] MEDS ORDERED: PARoxetine 20 MG TAB PO SCH (10:00)
== END 2023-06-14 11:58 | disposition left against medical advice (07) | DRG 254 ==
LOC: ER 03:37 → TELE 10:04
PROVIDERS: ADMIT Nurse Practitioner Family; ATTEND Nurse Practitioner Family
DX: K59.00 Constipation, unspecified (principal); K31.84 Gastroparesis; E11.43 Type 2 diabetes mellitus with diabetic autonomic (poly)neuropathy; E86.0 Dehydration; I10 Essential (primary) hypertension; F41.9 Anxiety disorder, unspecified; Z88.5 Allergy status to narcotic agent; Z88.2 Allergy status to sulfonamides; Z88.8 Allergy status to other drugs, medicaments and biological substances; Z83.3 Family history of diabetes mellitus; Z87.11 Personal history of peptic ulcer disease; Z82.49 Family history of ischemic heart disease and other diseases of the circulatory system
CPT/HCPCS: 36415; 36600; 74022; 80053; 80307; 81001; 82010; 82805; 83690; 84484; 85025; 96361; 96374; 96375; G0378; J1885

== ENCOUNTER 2024-05-10 09:39 | Emergency (ER) | payer MEDICAID ==
[~2024-05-10] VITALS: Ht 180.3 cm; Wt 83.4 kg
--- NOTE | 2024-05-10 09:55 | ECG ---
[facility] Test Date: 2024-05-10 Test Time: 09:50:44 Pat Name: EZIO MORRIS Department: ER Room: Gender: Welder And Fitter: : 1970 Requested By: ELLIE HORN Order Number: [id number] Reading MD: Gamaliel Leo Measurements Intervals [place] Rate: 151 P: 80 TN: 122 QRS: 3 QRSD: 104 T: 41 QT: 293 QTc: 465 Interpretive Statements Sinus tachycardia Electronically Signed On 05-12-2024 8:24:21 PST by Gamaliel Leo Please click the below link to view image of tracing.
[2024-05-10] MEDS: LORazepam 0.5 MG TAB PO ONE (10:30)
[2024-05-10] MEDS: MAALOX PLUS or MAALOX 30 ML PO ONE (10:30)
[2024-05-10 10:41] VITALS: PULSE 130; RESP 25; O2SAT 97
[2024-05-10] MEDS: cloNIDine HCL 0.1 MG TAB PO ONE (11:00)
--- NOTE | 2024-05-10 11:05 | ED.PDOC ---
Psychiatric HPI Comments 54M presents to the Er w/ prior Hx of anxiety and gastroparesis which all may be associated to moises c/c of anxiety. Pt reports to the ER stating that he has not had a bowel movement for 8 days and when he had one today he started to have anxiety. Pt HR in triage was 147 and BP was 221/108 the first time and 220/108 the second time. PMhx of Anxiety, DM, HTN and PUD. Denies chills, fever, N/V/D, SOB, CP or other associated symptom's, modifiers, or recent injuries or sick contact at this time. Chief Complaint: Anxiety Time Seen by MD: 10:10 Primary Care Provider: unknown Reviewed Notes: Nurses Notes, Medications Information Source: Patient Mode of Arrival: Ambulatory Severity: Unable to Care for Self Severity of Pain: Mild Severity of Mental Status: Moderate Severity of Symptoms: Moderate Timing: Hours Duration: Since onset, Hours Prehospital treatment: None Presents with: Anxiety Circumstance: None Current substance abuse: None Stressors: None History of: Anxiety Quality: None Location of pain or injury: None Associated signs and symptoms: Anxiety Past Medical History PAST MEDICAL HISTORY: Anxiety, DM, HTN, PUD Past Medical History (Other): Gastroparesis Surgical History: Denies all surgeries Family History Family History: Reviewed,noncontributory to illness, Unknown Social History Smoker: Non-Smoker Alcohol: Denies ETOH Use Drugs: Marijuana Lives In: Home Constitutional: denies: chills, diaphoresis, fatigue, fever, malaise, sweats, weakness, others EENTM: denies: blurred vision, double vision, ear bleeding, ear discharge, ear drainage, ear pain, ear ringing, eye pain, eye redness, hearing loss, mouth pain, mouth swelling, nasal discharge, nose bleeding, nose congestion, nose pain, photophobia, tearing, throat pain, throat swelling, voice changes, others Respiratory: denies: cough, hemoptysis, orthopnea, SOB at rest, shortness of breath, SOB with excertion, stridor, wheezing, others Cardiovascular: denies: chest pain, dizzy spells, diaphoresis, Dyspnea on exert ion, edema, irregular heart beat, left arm pain, lightheadedness, palpitations, PND, syncope, others Gastrointestinal: denies: abdomen distended, abdominal pain, blood streaked bowels, constipated, diarrhea, dysphagia, difficulty swallowing, hematemesis, melena, nausea, poor appetite, poor fluid intake, rectal bleeding, rectal pain, vomiting, others Genitourinary: denies: burning, dysuria, flank pain, frequency, hematuria, incontinence, penile discharge, penile sore, pain, testicle pain, testicle swelling, urgency, others Neurological: denies: dizziness, fainting, headache, left sided numbness, left sided weakness, numbness, paresthesia, pre-existing deficit, right sided numbness, right sided weakness, seizure, speech problems, tingling, tremors, weakness, others Musculoskeletal: denies: back pain, gout, joint pain, joint swelling, muscle pain, muscle stiffness, neck pain, others Integumetry: denies: bruises, change in color, change in hair/nails, dryness, laceration, lesions, lumps, rash, wounds, others Allergic/Immunocompromised: denies: Difficulty Healing, Frequent Infections, Hives, Itching, others Hematologic/Lymphatic: denies: anemia, blood clots, easy bleeding, easy bruising, swollen glands, others Endocrine: denies: excessive hunger, excessive sweating, excessive thirst, excessive urination, flushing, intolerance to cold, intolerance to heat, unexplained weight gain, unexplained weight loss, others Psychiatric: reports: anxiety; denies: bipolar disorder, depression, hopeless, panic disorder, schizophrenia, sleepless, suicidal, others All Other Systems: Reviewed and Negative Physical Exam General Appearance: Moderate Distress, Normal, Other (Severe anxiety pacing) HEENT: Normal ENT Inspection, PERRL/EOMI, Pharynx Normal, TMs Normal Neck: Full Range of Motion, Non-Tender, Normal, Normal Inspection Respiratory: Chest Non-Tender, Lungs Clear, No Accessory Muscle Use, No Respiratory Distress, Normal Breath Sounds Cardiovascular: No Edema, No JVD, No Murmur, No Gallop, Normal Peripheral Pulses, Regular Rate/Rhythm, Tachycardia Breast Exam: Deferred Gastrointestinal: LLQ, No Organomegaly, No Pulsatile Mass, Normal Bowel Sounds, Soft, Tenderness Genitalia: Deferred Pelvic: Deferred Rectal: Deferred Extremities: No calf tenderness, Normal capillary refill, Normal inspection, Normal range of motion, Non-tender, No pedal edema Musculoskeletal : Apperance: Normal Neurologic: Alert, adult basic education instructor II-XII nml as Tested, No Motor Deficits, Normal Affect, Normal Mood, No Sensory Deficits Cerebellar Function: Normal Reflexes: Normal Skin: Dry, Normal Color, Warm Peripheral Pulses: 1+ carotid (R), 1+ carotid (L) Lymphatic: No Adenopathy Was a procedure done? Was a procedure done?: No Psych Differential Dx Psych. Differential Dx: Anxiety, Panic Disorder OD Differential Dx: Anxiety, Depression Suicidal Differential Dx: Anxiety Intoxication Differential Dx: Dehydration, Electrolyte Imbalance X-Ray, Labs, Meds, VS Vital Signs Date Time Temp Pulse Resp B/P (MAP) Pulse Ox O2 Delivery O2 Flow Rate FiO2 05/10/24 14:00 57 16 114/66 (82) 92 05/10/24 12:00 109 16 156/94 (114) 96 05/10/24 12:00 102/68 05/10/24 11:00 183/97 05/10/24 10:41 130 25 97 Room Air* 0 21 05/10/24 10:33 98.4 134 25 184/93 (123) 97 98.4 05/10/24 09:50 97.8 147 20 221/108 (145) 98 05/10/24 09:50 151 Lab Test 05/10/24 13:03 05/10/24 10:18 Range/Units White Blood Count 5.5 4.4-10.8 10^3/uL Red Blood Count 3.80 L 4.5-5.90 10^6/uL Hemoglobin 11.5 L 13.5-17.5 g/dL Hematocrit 33.5 L 41.0-53.0 % Mean Corpuscular Volume 88.2 80.0-100.0 fL Mean Corpuscular Hemoglobin 30.2 28.0-32.0 pg Mean Corpuscular Hemoglobin Concent 34.2 32.0-36.0 g/dL Red Cell Distribution Width 12.5 11.8-14.3 % Platelet Count 154 140-450 10^3/uL Mean Platelet Volume 8.4 6.9-10.8 fL Neutrophils (%) (Auto) 69.1 37.0-80.0 % Lymphocytes (%) (Auto) 21.6 10.0-50.0 % Monocytes (%) (Auto) 7.3 0.0-12.0 % Eosinophils (%) (Auto) 1.6 0.0-7.0 % Basophils (%) (Auto) 0.4 0.0-2.0 % Neutrophils # (Auto) 3.8 1.6-8.6 10 ^3/uL Lymphocytes # (Auto) 1.2 0.4-5.4 10 ^3/uL Monocytes # (Auto) 0.4 0-1.3 10 ^3/uL Eosinophils # (Auto) 0.1 0-0.8 10 ^3/uL Basophils # (Auto) 0 0-0.2 10 ^3/uL Nucleated Red Blood Cells 0.0 % Sodium Level 143 136-145 mmol/L Potassium Level 4.4 3.5-5.1 mmol/L Chloride Level 111 H 98-107 mmol/L Carbon Dioxide Level 26 20-31 mmol/L Anion Gap 6 5-15 Blood Urea Nitrogen 27 H 9-23 mg/dL Creatinine 1.88 H 0.700-1.30 mg/dL Glomerular Filtration Rate Calc 42 >90 mL/min BUN/Creatinine Ratio 14.4 10.0-20.0 Serum Glucose 97 74-106 mg/dL Calcium Level 10.2 8.7-10.4 mg/dL Magnesium Level 2.0 1.6-2.6 mg/dL Lipase 41 12-53 U/L POC Glucose 155 H 70-106 mg/dl Current Medications Medications (Trade) Dose Ordered Sig/Mere Route Start Time Stop Time Status Last Admin Lorazepam (Ativan Tablet) 1 mg ONCE ONCE PO 05/10/24 10:15 05/10/24 10:16 DC 05/10/24 10:30 Al Hydrox/Mg Hydrox/Simethicone (Maalox Plus) 30 ml ONCE ONCE PO 05/10/24 10:15 05/10/24 10:16 DC 05/10/24 10:30 Clonidine HCl (Catapres Tablet) 0.2 mg ONCE ONCE PO 05/10/24 10:30 05/10/24 10:31 DC 05/10/24 11:00 Lorazepam (Ativan Inj) 1 mg ONCE ONCE IV 05/10/24 12:00 05/10/24 12:03 DC 05/10/24 12:11 Sodium Chloride 500 ml @ 500 mls/hr Q1H ONCE IVB 05/10/24 12:15 05/10/24 13:14 DC 05/10/24 12:25 X-Ray, Labs, Meds, VS Comment COURSE IN THE EMERGENCY DEPARTMENT EVENTFUL PATIENT CAME IN BECAUSE OF ABDOMINAL PAIN CONSTIPATION SEVERE ANXIETY PATIENT WITH A HISTORY OF DIABETES HYPERTENSION PUD AND GASTROPARESIS EKG SHOWS SINUS TACHYCARDIA AT 1:51 A.M. AND A BLOOD PRESSURE OF 221/100 AND 0 EIGHT CBC 5500 WITH 69% NEUTROPHILS H&H 11.5 AND 33.5 CMP BLOOD SUGAR IS 155 GFR AT 42 LIPASE AT 41 MAGNESIUM AT 2.0 PATIENT IS FEELING BETTER AND WILL BE DISCHARGED HOME TO FOLLOW UP WITH HIS PCP Time of 1ST Reevaluation: 10:40 Reevaluation 1ST: Unchanged Time of 2ND Reevaluation: 16:31 Reevaluation 2ND: Improved Consultation: PCP, GI Patient Education/Counseling: Diagnosis, Treatment, Prognosis, Need For Follow Up Family Education/Counseling: Diagnosis, Treatment, Prognosis, Need For Follow Up, No Family Present Departure 1 Departure Time of Disposition: 16:32 Impression: Primary Impression: Acute anxiety Additional Impressions: Constipation by delayed colonic transit Diabetes 1.5, managed as type 2 Gastroparesis Disposition: 01 HOME / SELF CARE / HOMELESS Condition: Fair Additional Instructions: PUSH FLUIDS AND FOLLOW UP WITH YOUR PCP e-Prescriptions Lorazepam (Ativan) 0.5 Mg Tab 1 TAB PO BID for 5 Days, #10 TAB Prov: ELLIE HORN MD 05/10/24 Metoclopramide Hcl (Reglan) 10 Mg Tab 10 MG PO BID for 10 Days, #20 TAB Prov: ELLIE HORN MD 05/10/24 Discharged With: Self Critical Care Note Critical Care Time?: No Stability Stability form required: No Heart Score Heart Score: Heart Score Response (Comments) Value History Slightly Suspicious 0 EKG Repolarization Disturb 1 Age 45-64 1 Risk Factors 1 or 2 risk factors 1 Troponin N/A 0 Total 3 I personally scribed for ELLIE HORN MD ([email or web address]) on 05/10/24 at 11:05. Electronically submitted by Hunter Escalante ([email or web address]). ELLIE HORN MD May 10, 2024 11:05
[2024-05-10] MEDS: LORazepam 2MG/ML-1ML VIAL IV ONE (12:11)
[2024-05-10] MEDS: SODIUM CHLORIDE 0.9% 500 ML IVB ONE (12:25)
[2024-05-10 13:25] LABS: Basophils # (auto) 0 10 ^3/uL (0-0.2); Basophils % (auto) 0.4 % (0.0-2.0); Eosinophils # (auto) 0.1 10 ^3/uL (0-0.8); Eosinophils % (auto) 1.6 % (0.0-7.0); Hematocrit 33.5 % (41.0-53.0); Hemoglobin 11.5 g/dL (13.5-17.5); Lymphocytes # (auto) 1.2 10 ^3/uL (0.4-5.4); Lymphocytes % (auto) 21.6 % (10.0-50.0); Mean Corpuscular Hemoglobin 30.2 pg (28.0-32.0); Mean Corpuscular Hgb Conc. 34.2 g/dL (32.0-36.0); Mean Corpuscular Volume 88.2 fL (80.0-100.0); Monocytes # (auto) 0.4 10 ^3/uL (0-1.3); Monocytes % (auto) 7.3 % (0.0-12.0); Neutrophils # (auto) 3.8 10 ^3/uL (1.6-8.6); Neutrophils % (auto) 69.1 % (37.0-80.0); Platelet Count (auto) 154 10^3/uL (140-450); Red Cell Distribution Width 12.5 % (11.8-14.3); White Blood Cell 5.5 10^3/uL (4.4-10.8)
[2024-05-10 13:33] LABS: Potassium 4.4 mmol/L (3.5-5.1); Sodium 143 mmol/L (136-145)
[2024-05-10 13:34] LABS: Anion Gap 6 (5-15); Calcium 10.2 mg/dL (8.7-10.4); Carbon Dioxide 26 mmol/L (20-31)
[2024-05-10 13:39] LABS: BUN/Creatinine Ratio 14.4 (10.0-20.0); Glucose 97 mg/dL (74-106); Lipase 41 U/L (12-53)
[2024-05-10 13:48] LABS: Blood Urea Nitrogen 27 mg/dL (9-23); Chloride 111 mmol/L (98-107)
[2024-05-10] MEDS ORDERED: METO-281 PO (16:34)
[2024-05-10] MEDS ORDERED: LORA-655 PO (16:34)
[2024-05-10 17:26] VITALS: BP 132/70; PULSE 89; RESP 19; TEMP 98; O2SAT 94
== END 2024-05-10 17:41 | disposition home or self-care (01) ==
LOC: ER 09:39
DX: F41.9 Anxiety disorder, unspecified (principal); K59.01 Slow transit constipation; K31.84 Gastroparesis; E13.9 Other specified diabetes mellitus without complications; F12.10 Cannabis abuse, uncomplicated; I10 Essential (primary) hypertension; Z87.11 Personal history of peptic ulcer disease
CPT/HCPCS: 36415; 80048; 82947; 83690; 83735; 85025; 93005; 96361; 96374; 99285; J2060; J7040; 82962

== ENCOUNTER 2024-06-08 13:19 | Emergency (ER) | payer MEDICAID ==
[~2024-06-08] VITALS: Ht 180.3 cm; Wt 83.5 kg
[2024-06-08] MEDS: LORazepam 2MG/ML-1ML VIAL ONE (12:47)
[~2024-06-08 13:19] MED LIST changes: +LORA-655 PO; +METO-281 PO
[2024-06-08 13:30] VITALS: BP 189/100; PULSE 137; RESP 20; TEMP 98.2; O2SAT 100
[2024-06-08] MEDS ORDERED: diphenhdrAMINE HCL 50 MG/1 ML VL IM ONE (13:30)
[2024-06-08] MEDS ORDERED: HALOPERIDOL LACTATE 5 MG/ML INJ VIAL IM ONE (13:30)
--- NOTE | 2024-06-08 13:44 | ED.PDOC ---
GI ASSESSMENT HPI Comments 54-year-old male with PMHx Anxiety, HTN, DM, Gastroparesis who is well known to this ER presents with a chief complaint of anxiety and abdominal pain s/p constipation. Patient states that he attempted to have a bowel movement today after not having one for 2 days and then "got anxiety". Patient is fidgeting in triage, stating that he has to have "strong pain medications". Patient is known to this ER for drug-seeking behavior and then elopes after getting Ativan and Dilaudid. No other symptoms or modifying factors present at this time. Chief Complaint: Abdominal Pain Time Seen by MD: 13:24 Primary Care Provider: SAIDA Marie Notes: Medications, Allergies Allergies: Coded Allergies: Sulfa Antibiotics (Verified Allergy, Severe, 07/12/21) Haloperidol (Verified Allergy, Intermediate, 12/13/21) Metoclopramide (Verified Allergy, Unknown, 07/12/21) Morphine (Verified Allergy, Unknown, 07/12/21) Home Meds Active Scripts Lorazepam (Ativan) 0.5 Mg Tab, 1 TAB PO BID for 5 Days, #10 TAB Prov:ELLIE HORN MD 05/10/24 Metoclopramide Hcl (Reglan) 10 Mg Tab, 10 MG PO BID for 10 Days, #20 TAB Prov:ELLIE HORN MD 05/10/24 Lorazepam (ATIVAN TABLET) 0.5 Mg Tb, 1 TAB PO Q24HR PRN, #2 TAB Prov:BETY ROBERSON DO 12/26/22 Paroxetine (PAXIL TABLET) 20 Mg Tb, 1 TAB PO DAILY, #30 TAB 5 Refills Prov:NEO JENKINS MD 12/19/22 Lorazepam (Ativan) 2 Mg Tab, 1 TAB PO BID, #30 TAB Prov:NEO JENKINS MD 12/19/22 Oxycodone W/ Acetaminophen (Percocet 5/325MG) 1 Tab Tb, 2 TAB PO QID, #30 TAB Prov:NEO JENKINS MD 12/19/22 Lorazepam (Lorazepam) 1 Mg Tab, 1 TAB PO TID, #30 TAB Prov:NEO JENKINS MD 12/18/22 Lisinopril (Lisinopril) 40 Mg Tab, 1 TAB PO DAILY, #30 TAB 5 Refills Prov:NEO JENKINS MD 12/18/22 Amlodipine Besylate (Amlodipine Besylate) 10 Mg Tab, 1 TAB PO DAILY, #30 TAB 5 Refills Prov:NEO JENKINS MD 12/18/22 Oxycodone W/ Acetaminophen (Percocet 5/325MG) 1 Tab Tb, 2 TAB PO QID PRN, #30 TAB Prov:NEO JEKNINS MD 12/18/22 Paroxetine (PAXIL TABLET) 20 Mg Tb, 20 MG PO QAM for 30 Days, #30 TAB 3 Refills Prov:NEO JENKINS MD 12/18/22 Ondansetron (Zofran) 4 Mg Tab, 1 TAB PO Q6HR, #20 TAB Prov:DEVORAH DOE MD 12/09/21 Reported Medications Amlodipine Besylate (Amlodipine Besylate) 10 Mg Tab, 1 TAB PO DAILY 12/27/20 Gabapentin (Gabapentin) 400 Mg Cap, 1 CAP PO TID 12/27/20 Metformin Hydrochloride (Metformin Hcl Er) 500 Mg Tab, 500 MG PO DAILY 07/12/19 Information Source: Patient Mode of Arrival: Ambulatory Timing: Minutes Duration: Since onset Prehospital treatment: None Quality: Aching Vomitus: None Stool: Impaction Severity: Moderate Recent: None Recent Hx of: Constipation, Narcotic Use Pain Location: Diffuse Associated sign and symptoms: Constipation, Abdominal Pain, Other (ANXIETY) Past Medical History PAST MEDICAL HISTORY: Anxiety, DM, HTN, PUD Surgical History: Denies all surgeries Family History Family History: Reviewed,noncontributory to illness, Unknown Social History Smoker: Non-Smoker Alcohol: Denies ETOH Use Drugs: Marijuana Lives In: Home Constitutional: denies: chills, diaphoresis, fatigue, fever, malaise, sweats, weakness, others EENTM: denies: blurred vision, double vision, ear bleeding, ear discharge, ear drainage, ear pain, ear ringing, eye pain, eye redness, hearing loss, mouth pain, mouth swelling, nasal discharge, nose bleeding, nose congestion, nose pain, photophobia, tearing, throat pain, throat swelling, voice changes, others Respiratory: denies: cough, hemoptysis, orthopnea, SOB at rest, shortness of breath, SOB with excertion, stridor, wheezing, others Cardiovascular: denies: chest pain, dizzy spells, diaphoresis, Dyspnea on exertion, edema, irregular heart beat, left arm pain, lightheadedness, palpitations, PND, syncope, others Gastrointestinal: reports: abdominal pain, constipated; denies: abdomen distended, blood streaked bowels, diarrhea, dysphagia, difficulty swallowing, hematemesis, melena, nausea, poor appetite, poor fluid intake, rectal bleeding, rectal pain, vomiting, others Genitourinary: denies: burning, dysuria, flank pain, frequency, hematuria, incontinence, penile discharge, penile sore, pain, testicle pain, testicle swelling, urgency, others Neurological: denies: dizziness, fainting, headache, left sided numbness, left sided weakness, numbness, paresthesia, pre-existing deficit, right sided numbness, right sided weakness, seizure, speech problems, tingling, tremors, weakness, others Musculoskeletal: denies: back pain, gout, joint pain, joint swelling, muscle pain, muscle stiffness, neck pain, others Integumetry: denies: bruises, change in color, change in hair/nails, dryness, laceration, lesions, lumps, rash, wounds, others Allergic/Immunocompromised: denies: Difficulty Healing, Frequent Infections, Hives, Itching, others Hematologic/Lymphatic: denies: anemia, blood clots, easy bleeding, easy bruising, swollen glands, others Endocrine: denies: excessive hunger, excessive sweating, excessive thirst, excessive urination, flushing, intolerance to cold, intolerance to heat, unexplained weight gain, unexplained weight loss, others Psychiatric: reports: anxiety; denies: bipolar disorder, depression, hopeless, panic disorder, schizophrenia, sleepless, suicidal, others All Other Systems: Reviewed and Negative Physical Exam General Appearance: Mild Distress, Normal, Other (ANXIOUS APPEARING) HEENT: Normal ENT Inspection, Pharynx Normal, TMs Normal Neck: Full Range of Motion, Non-Tender, Normal, Normal Inspection Respiratory: Chest Non-Tender, Lungs Clear, No Accessory Muscle Use, No Respiratory Distress, Normal Breath Sounds Cardiovascular: No Edema, No JVD, No Murmur, No Gallop, Normal Peripheral Pulses, Regular Rate/Rhythm Breast Exam: Deferred Gastrointestinal: Abnormal Bowel Sounds (DECREASED), No Organomegaly, Non Tender, No Pulsatile Mass, Soft Genitalia: Deferred Pelvic: Deferred Rectal: Deferred Extremities: No calf tenderness, Normal capillary refill, Normal inspection, Normal range of motion, Non-tender, No pedal edema Musculoskeletal : Apperance: Normal Neurologic: Alert, 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 Was a procedure done?: No GI differential Dx Differential Diagnosis: Bowel Obstruction, Constipation, Gastritis/PUD, Gastroenteritis, Impaction, Other (drug seeking behavior, chronic pain syndrome, anxiety) X-Ray, Labs, Meds, VS Vital Signs Date Time Temp Pulse Resp B/P (MAP) Pulse Ox O2 Delivery O2 Flow Rate FiO2 06/08/24 13:30 98.2 137 20 189/100 (129) 100 98.2 Current Medications Medications (Trade) Dose Ordered Sig/Mere Route Start Time Stop Time Status Last Admin Lorazepam (Ativan Inj) 1 mg ONCE ONCE IM 06/08/24 13:45 06/08/24 13:46 DC 06/08/24 13:45 Time of 1ST Reevaluation: 13:54 Reevaluation 1ST: Unchanged Patient Education/Counseling: Diagnosis, Treatment, Prognosis, Need For Follow Up Family Education/Counseling: Diagnosis, Treatment, Prognosis, Need For Follow Up Additional Information Previous visit documents reviewed: The following tests were ordered, and results were reviewed by me: Ativan IM, Benadryl IM, KUB Abdomen I reviewed and agreed with the following test results read by other providers: Radiologist I discussed treatment and results with medical personnel and: Patient and family Departure 1 Departure Time of Disposition: 15:17 Impression: Primary Impression: Constipation by delayed colonic transit Additional Impressions: Anxiety Chronic pain Qualified Codes: G89.4 - Chronic pain syndrome Disposition: 07 LEFT AWOL/ELOPED Condition: Other (unknown) Critical Care Note Critical Care Time?: No Stability Stability form required: No Heart Score Heart Score: Heart Score Response (Comments) Value History N/A 0 EKG N/A 0 Age N/A 0 Risk Factors N/A 0 Troponin N/A 0 Total 0 I personally scribed for ANA LILIA DOYLE MD ([email or web address]) on 06/08/24 at 13:44. Electronically submitted by Miquel Borja ([email or web address]). ANA LILIA DOYLE MD Jun 08, 2024 13:44
[2024-06-08] MEDS: LORazepam 2MG/ML-1ML VIAL IM ONE (13:45)
[2024-06-08] MEDS ORDERED: POLY335015 PO (15:32)
--- NOTE | 2024-06-08 15:41 | DVH ---
EXAM: XY KUB ABDOMEN SINGLE VIEW HISTORY: constipation COMPARISON: None TECHNIQUE: Single AP of the abdomen and pelvis was obtained. Findings: There is motion artifact. Frontal view of the abdomen demonstrates a nonobstructive bowel gas pattern. No visualized renal calc aylin. There is no evidence of an acute fracture, dislocation, blastic, or lytic lesions. The visualized portions of the lung bases are unremarkable. No radiopaque foreign bodies. No superficial soft tissue abnormalities. Impression: 1. Nonobstructive bowel gas pattern.
== END 2024-06-08 15:55 | disposition left against medical advice (07) ==
LOC: ER 13:19
DX: K59.01 Slow transit constipation (principal); F41.9 Anxiety disorder, unspecified; G89.29 Other chronic pain; Z88.2 Allergy status to sulfonamides; Z88.6 Allergy status to analgesic agent; Z88.8 Allergy status to other drugs, medicaments and biological substances; Z79.899 Other long term (current) drug therapy
CPT/HCPCS: 74018; 96372; 99283; J2060